=== PATIENT | male | born 1980 | race Caucasian/White ===

== ENCOUNTER 2017-08-25 06:22 | Inpatient (IN) | END 2017-08-30 17:05 | disposition home or self-care (01) | DRG 330 ==

== ENCOUNTER 2017-09-03 22:28 | Emergency (ER) | END 2017-09-04 00:46 | disposition home or self-care (01) ==

== ENCOUNTER 2018-06-08 07:30 | Inpatient (IN) | payer BC ==
[~2018-06-08] VITALS: Ht 167.6 cm; Wt 123.8 kg
[2018-06-08] VITALS (19 sets, daily range): BP systolic 109–189; BP diastolic 54–97; PULSE 87–124; RESP 15–23; Ht 167.6 cm; Wt 123.8 kg
[2018-06-08] MEDS: SOD CHLORIDE 0.9% 1,000 ML IV SCH ×3 (06:00→19:20)
[~2018-06-08 07:30] MED LIST: CEFAZOLIN 1 GM INJ ONE; CEFAZOLIN 2 GM/50 ML (PMX) 50 ML IVPB SCH; CEPH-443 PO; DESFLURANE 15 MIN ONE; HYDR-3601 PO; LIDOCAINE 2% (SDV) 5 ML INJ ONE; NO HOME MEDS; SUCCINYLCHOLINE CHLORIDE 100 MG/5 ML SYG IV ONE
--- NOTE | 2018-06-08 13:03 | PREAC ---
Date/Time of Note Date/Time of Note DATE: 06/08/18 TIME: 13:02 Anesthesia Eval and Record Evaluation Time Pre-Procedure Interview DATE: 06/08/18 TIME: 13:02 Age 38 Sex male NPO: 8 hrs Preoperative diagnosis RECURRENT DIVERTICULITIS Planned procedure OPEN LEFT HEMICOLECTOMY Past Medical History Past Medical History: Includes GI: Morbid obesity Surgery & Anesthesia Issues No known issue Meds Anticoagulation: No Beta Chito within 24 hr: No Reason Beta Chito not given: Pt. not on B-Chito Discontinued Reported Medications [No Home Meds] No Conflict Check 01/13/16 Discontinued Scripts Cephalexin* (Keflex*) 500 Mg Capsule, 500 MG PO TID for 7 Days, CAP Prov:DORETHA BRANDT PA-C 09/04/17 Hydrocodone Bit-Acetaminophen (Hydrocodone Bit-APAP) 5-325MG Tablet, 1 TAB PO Q4H PRN for PAIN LEVEL 1-5, #40 TAB Prov:HEATHER OWEN 08/30/17 Current Medications Cefazolin Sodium/ Dextrose 50 ml @ 100 mls/hr ONCE IVPB ; Start 06/08/18 at 06:00; Stop 06/08/18 at 14:00 Sodium Chloride 1,000 ml @ 75 mls/hr [id number] IV ; Start 06/08/18 at 06:00; Stop 06/08/18 at 23:00 Meds reviewed: Yes Allergies Coded Allergies: No Known Allergies (Verified Allergy, Unknown, 06/08/18) Allergies Reviewed: Yes Labs/Studies Labs Reviewed: Reviewed by anesthesiologist test: N/A Pre-procedure Exam Last vitals Vital Signs Date Temp Pulse Resp B/P (MAP) Pulse Ox O2 O2 Flow FiO2 Time Delivery Rate 06/08/18 97.9 87 16 128/84 96 Room Air 12:52 (99) Airway: Adequate mouth opening, Adequate thyromental dist Mallampati: Mallampati III Teeth: Normal Lung: Normal Heart: Normal ASA Physical Status ASA physical status: 3 Emergency: None Planned Anesthetic General/MAC: ETT Neuraxial: Spinal Planned Pain Management Sub-arachniod narcotics, Parenteral pain med Pre-operative Attestations Prior to commencing anesthesia and surgery, the patient was re-evaluated, there was verification of: *The patient's identity *The results of appropriate recent lab work and preoperative vital signs *The above evaluation not changing prior to induction *Anesthetic plan, risk benefits, alternative and complications discussed with patient/family; questions answered; patient/family understands, accepts and wishes to proceed. Vinay Knight M.D. Jun 08, 2018 13:03
[2018-06-08] MEDS ORDERED: ONDANSETRON 4 MG INJ ONE (13:14)
[2018-06-08] MEDS ORDERED: DEXAMETHASONE 4 MG/ML 5 ML INJ ONE (13:14)
[2018-06-08] MEDS ORDERED: FENTAnyl 50 MCG/ML VIAL ONE ×2 (13:14→15:56)
[2018-06-08] MEDS ORDERED: CEFAZOLIN 1 GM INJ ONE (13:14)
[2018-06-08] MEDS ORDERED: PROPOFOL 20 ML ONE (13:14)
[2018-06-08] MEDS ORDERED: GLYCOPYRROLATE 0.4 MG INJ ONE (13:14)
[2018-06-08] MEDS ORDERED: NEOSTIGMINE 3 MG/3 ML SYRINGE ONE (13:14)
[2018-06-08] MEDS ORDERED: ROCURONIUM 50 MG INJ ONE (13:14)
[2018-06-08] MEDS ORDERED: MIDAZOLAM 1 MG/ML 2 ML INJ ONE (13:14)
[2018-06-08] MEDS ORDERED: morphine SULFATE/PF (10 MG/10 ML) INJ ONE (13:20)
[2018-06-08] MEDS ORDERED: EPHEDrine SULFATE 50 MG/5 ML SYG IV PRN (13:30)
[2018-06-08] MEDS ORDERED: LABETALOL HCL 20MG INJ IV PRN (13:30)
[2018-06-08] MEDS ORDERED: MIDAZOLAM 1 MG/ML 2 ML INJ IV PRN (13:30)
[2018-06-08] MEDS ORDERED: ONDANSETRON 4 MG INJ IV PRN ×2 (13:30)
[2018-06-08] MEDS ORDERED: NALOXONE (0.4 MG/ML) INJ IV PRN ×2 (13:30→16:30)
[2018-06-08] MEDS ORDERED: DIPHENHYDRAMINE 50 MG INJ IV PRN ×2 (13:30)
[2018-06-08] MEDS ORDERED: IPRATROPIUM (NEB) 0.5 MG/2.5 ML AMP HHN PRN (13:30)
[2018-06-08] MEDS ORDERED: FENTAnyl 50 MCG/ML VIAL IV PRN ×3 (13:30)
[2018-06-08] MEDS ORDERED: HYDROmorphONE 1 MG/5 ML IV SYRINGE IV PRN ×3 (13:30)
[2018-06-08] MEDS ORDERED: ALBUTEROL 0.083% (NEB) 2.5 MG/3 ML AMP HHN PRN (13:30)
[2018-06-08] MEDS ORDERED: MEPERIDINE 25 MG INJ IV PRN (13:30)
[2018-06-08] MEDS ORDERED: OXYCODONE/ACETAMINOPHEN (5/325) TAB PO PRN ×2 (13:30)
[2018-06-08] MEDS ORDERED: KETOROLAC 30 MG INJ IV PRN (13:30)
[2018-06-08] MEDS ORDERED: TRIMETHOBENZAMIDE 100 MG/ML VIAL IM PRN ×2 (13:30)
[2018-06-08] MEDS ORDERED: hydrALAzine 20 MG INJ IV PRN (13:30)
[2018-06-08] MEDS ORDERED: NALBUPHINE HCL (10 MG/1 ML) INJ IV PRN (13:30)
[2018-06-08] MEDS ORDERED: HYDROmorphONE 0.5 MG/0.5 ML SYG IV PRN ×2 (13:30)
[2018-06-08] MEDS ORDERED: SUGAMMADEX SODIUM 200 MG/2 ML VIAL IV ONE (16:04)
--- NOTE | 2018-06-08 16:35 | PAC ---
Date/Time of Note Date/Time of Note DATE: 06/08/18 TIME: 16:35 Post-Anesthesia Notes Post-Anesthesia Note Last documented vital signs Vital Signs Date Temp Pulse Resp B/P (MAP) Pulse Ox O2 O2 Flow FiO2 Time Delivery Rate 06/08/18 98.5 16:34 06/08/18 87 16 128/84 96 Room Air 12:52 (99) Activity: WNL Respiratory function: WNL Cardiovascular function: WNL Mental status: Baseline Pain reasonably controlled: Yes Hydration appropriate: Yes Nausea/Vomiting absent: Yes Vinay Knight M.D. Jun 08, 2018 16:35
--- NOTE | 2018-06-08 16:43 | OPR ---
Date/Time of Note Date/Time of Note DATE: 06/08/18 TIME: 16:30 Operative Report Procedure Date: Jun 08, 2018 Preoperative Diagnosis enterocutaneous fistula Postoperative Diagnosis same Operation/Procedure Performed 1. takedown of enterovesical fistula 2. resection of colovesical fistula 3. intraoperative colonoscopy 4. partial colectomy and primary anastomosis 5. splenic flexure mobilization 6. open lysis of adhesions 7. open repair of incarcerated incisional hernia 8. omentopexy of omentum into the pelvis 9. two layer repair of bladder defect 5 cm Surgeon see signature line Ice [employer] Maker Feroz Lima Anesthesia Type: general Estimated Blood Loss: 150 - 200 ml's Transfusion none Specimen partial colon proximal and distal colon donuts colovesical fistula Grafts/Implants none Complications none Pt Condition Post Procedure: stable Indications This is a 38-year-old male with a very complicated history with 5-6 episodes of diverticulitis. He eventually got laparoscopic left hemicolectomy with primary anastomosis. Subsequently he developed a colovesical fistula. He had a work-up with a barium enema which showed no fistula. He subsequently had a cystoscopy with an area of concern that could be a fistula. Patient had symptoms of pain in the pelvis and is brought to the OR for surgical repair. Procedure Description Patient is here to the OR and prepped and draped in usual sterile fashion. Surgical timeout is performed. IV antibiotics given. Intraoperative colonoscopy was performed initially. This is taken all the way down to the proximal area of the splenic flexure to the cecum. The prep was poor. However the colonoscopy was focused in the area of the anastomosis and no obvious area of fistulization was apparent from the mucosa. Air was suctioned out and the scope was pulled and the patient was repositioned in lithotomy position for a laparotomy. Midline incision was made after the patient was prepped and draped for surgery. This incision was taken down from the supraumbilical down to the suprapubic area. At the periumbilical incision where prior incision was made for extraction of the specimen there was a incarcerated hernia. Lace of adhesio ns was performed and the hernia was manually reduced. The fascial incision was then extended superiorly and inferiorly. Bookwalter retractors were placed. Open lysis of adhesions was performed. Particular attention was paid to the pelvic area. There is an apparent area of the colon that was adhesed to the bladder. Part of the bladder was resected along with the colovesical fistula. The bladder was then repaired in a 2 layer fashion with running 3-0 chromic and the second layer of interrupted 3-0 chromic. Attention was then paid to the area of the Siva vesicle fistula. The fistula did not appear patent anymore and hence there was just an area of inflammation. This is consistent with the barium enema finding of no colovesical fistula. This area was then also resected and sent for specimen as the colovesical fistula. An evaluation of the colon was made and this defect appeared to large for a primary closure as this may compromise the circumference of the colon. The colon was then disconnected from the rectum to the left colon. The distal stump was then closed with a running 3-0 PDS. A partial colectomy was performed to have good fresh edges with good vascular supply. Splenic flexure mobilization was performed by first examining the transverse colon. Transverse colon was away from the omentum and although around the splenic flexure. The white line of Toldt was divided laterally. This allowed mobilization of the colon for a tension-free anastomosis. The anvil portion of the EEA 29 stapler was placed in the proximal colon with a pursestring 3-0 Prolene suture. EEA sizer placed into the rectum. EEA stapler was then placed and the anastomosis was made at the anterior portion of the distal stump away from the suture line. The EEA stapler was fired and held in position for approximately 1 minute. The EEA stapler was then appropriately retrieved and a proximal and distal donuts were identified that were intact. Leak test was then performed by irrigating the pelvis and closing the proximal portion of the colon proximal to the anastomosis. The rectum was then insufflated with bulb syringe and no evidence of any bulbs were shown. There is no evidence of any leaks. Irrigation was then suctioned out. Midline incision was then closed with a running #1 looped PDS from superior to inferior and inferior superior tied in the middle. The surgical wound was then irrigated with antibiotic irrigation. This was then closed in multiple layers with interrupted 3-0 Vicryl and skin malcolm. Dry dressings were applied. Shannan HUERTA Jun 08, 2018 16:43
[2018-06-08] MEDS ORDERED: AMPICILLIN/SULB 3 GM/NS (PMX) 100 ML IVPB SCH (17:00)
[2018-06-08] MEDS: HYDROmorphONE 0.2 MG/ML PCA IV SCH (17:06)
[2018-06-08] MEDS: metroNIDAZOLE 500 MG/NS (PMX) 100 ML IVPB SCH (20:25)
[2018-06-08] MEDS: AMPICILLIN/SULB 3 GM/NS (PMX) 100 ML IVPB SCH (21:58)
[2018-06-09] VITALS: BP 111/73; PULSE 112; RESP 18
--- NOTE | 2018-06-09 01:54 | HP ---
DATE OF ADMISSION: 06/08/2018 CHIEF COMPLAINT AND HISTORY OF PRESENT ILLNESS: The patient is a 38-year old gentleman well known to me from recent admission. The patient on 08/25/2017, underwent a laparoscopic left hemicolectomy with primary colorectal low pelvic anastomosis, lysis of adhesion. The patient prior to that, had multiple episodes of recurrent diverticulitis and multiple hospitalizations for that. The patient was discharged home on the 08/30/2017. The patient had been following up with Dr. Huerta as an outpatient and apparently developed colovesical fistula .The patient was brought in to hospital today and underwent takedown of enterovesical fistula, dissection of colovesical fistula, partial colectomy and primary anastomosis and open repair of incarcerated incisional hernia. The patient is being kept n.p.o. Denies any chest pain or shortness of breath. No history of fever or chills. No history of vomiting, postoperatively. No history of leg pain. No history of headache, dizziness, syncope. REVIEW OF SYSTEMS: Other than postoperative pain, rest of the systems was unremarkable. PAST MEDICAL HISTORY: As stated above. In addition, the patient is also status post laparoscopic cholecystectomy. ALLERGIES: NONE. SOCIAL HISTORY: No smoking or alcohol. FAMILY HISTORY: Noncontributory. PHYSICAL EXAMINATION: GENERAL: Revealed the patient to be awake, alert. VITAL SIGNS: Temperature 98.5, pulse 100, respirations 20, blood pressure 112/74, O2 saturation 90% on 3 liters cannula. HEENT: No eye discharge or redness. Conjunctivae normal. Oropharynx clear. NECK: Supple. No mass or thyromegaly. CHEST: Fairly clear. CARDIOVASCULAR: S1, S2, normal. No murmur. ABDOMEN: The patient is status post surgery as described above. EXTREMITIES: No edema. Pedal pulses palpable. SKIN: Without acute rash or ulcer. NEUROLOGIC: The patient is awake, alert, fairly oriented with no gross focal deficit. LABORATORY DATA: WBC 12.1, hemoglobin 13.8, platelet 263, chemistry sodium 137, potassium 4, BUN 10, creatinine 0.5, random glucose 229, earlier, it was 163, AST 68, ALT 66, alkaline phosphatase 81, bilirubin 0.9. IMPRESSION: 1. Recurrent diverticulitis status post laparoscopic left hemicolectomy with primary anastomosis complicated by colovesical fistula. The patient underwent takedown of enterovesical fistula, resection of colovesical fistula, partial colectomy, primary anastomosis and open repair of incarcerated incisional hernia and open lysis of adhesion. 2. ? new onset of DM PLAN: The patient will be admitted on medical floor. The patient will be kept n.p.o. and has been started on IV ampicillin as per protocol along with IV Flagyl. The patient will be given IV fluid. For pain control, the patient will be given IV Dilaudid, IV zofran for nausea. Will use scd for dvt prophylaxis. In view of elevated random blood sugar, we will obtain basic metabolic panel tomorrow as well as a hemoglobin A1c. Further recommendation will depend on patient's hospital course and recommendation from Dr. Huerta. Dictated By: BUD SWARTZ MD AB/NTS Conf#: [id number] DID#: [id number] CC: CHANCE HUERTA MD; LULA DELATORRE MD; RENETTA SMITH DO;*EndCC* MTDD
[2018-06-09] MEDS: metroNIDAZOLE 500 MG/NS (PMX) 100 ML IVPB SCH ×2 (02:41→11:07)
[2018-06-09] MEDS: SOD CHLORIDE 0.9% 1,000 ML IV SCH ×3 (02:41→16:53)
[2018-06-09] MEDS: AMPICILLIN/SULB 3 GM/NS (PMX) 100 ML IVPB SCH ×3 (04:11→15:27)
[2018-06-09 04:41] VITALS: BP 120/71; PULSE 88; RESP 17
[2018-06-09 07:24] VITALS: BP 108/65; PULSE 88; RESP 19
[2018-06-09] MEDS ORDERED: GLUCOSE GEL 15 GRAM TUBE BUCCAL PRN (10:00)
[2018-06-09] MEDS ORDERED: GLUCAGON 1 MG INJ IM PRN (10:00)
[2018-06-09] MEDS ORDERED: DEXTROSE 50% 50 ML SYRINGE IV PRN ×2 (10:00)
[2018-06-09] MEDS ORDERED: GLUCOSE GEL 15 GRAM TUBE PO PRN ×2 (10:00)
--- NOTE | 2018-06-09 11:12 | PN ---
Date/Time of Note Date/Time of Note DATE: 06/09/18 TIME: 11:10 Assessment/Plan VTE Prophylaxis Risk score (from [facility] [place] risk: 5 SCD applied (from Ns): Yes Lines/Catheters IV Catheter Type (from [facility]): Peripheral IV Urinary Cath still in place: Yes Reason Cath still needed: urinary retention Assessment/Plan Assessment/Plan -Recurrent diverticulitis -status post laparoscopic left hemicolectomy with primary anastomosis complicated by colovesical fistula -Sp takedown of enterovesical fistula, resection of colovesical fistula, partial colectomy, primary anastomosis and open repair of incarcerated incisional hernia and open lysis of adhesion. Rafael Shannon Result Diagram: 06/09/1842706/09/18427 Results 24hrs Laboratory Tests Test 06/08/18 13:00 06/08/18 18:56 06/09/18 04:28 White Blood Count 9.6 # 12.1 #H 16.0 #H Red Blood Count 5.11 4.66 L 4.35 L Hemoglobin 15.2 13.8 L 12.9 L Hematocrit 44.6 40.9 L 37.8 L Mean Corpuscular Volume 87.3 87.8 86.9 Mean Corpuscular Hemoglobin 29.7 29.6 29.7 Mean Corpuscular Hemoglobin Concent 34.1 33.7 34.1 Red Cell Distribution Width 12.1 12.2 11.9 Platelet Count 296 # 263 252 Mean Platelet Volume 10.4 10.6 H 10.8 H Immature Granulocytes % 0.600 H 0.500 H 0.800 H Neutrophils % 48.5 86.3 H 81.3 H Lymphocytes % 42.3 9.2 L 10.8 L Monocytes % 5.7 3.6 6.8 Eosinophils % 2.2 0.1 0.0 Basophils % 0.7 0.3 0.3 Nucleated Red Blood Cells % 0.0 0.0 0.0 Immature Granulocytes # 0.060 H 0.060 H 0.130 H Neutrophils # 4.7 10.5 H 13.0 H Lymphocytes # 4.1 H 1.1 1.7 Monocytes # 0.6 0.4 1.1 H Eosinophils # 0.2 0.0 0.0 Basophils # 0.1 0.0 0.0 Nucleated Red Blood Cells # 0.0 0.0 0.0 Prothrombin Time 13.0 Prothrombin Time Ratio 1.0 INR International Normalized Ratio 0.97 Activated Partial Thromboplast Time 31.0 Sodium Level 142 137 135 Potassium Level 3.9 4.0 4.2 Chloride Level 101 99 98 Carbon Dioxide Level 26 24 26 Anion Gap 15 H 14 H 11 Blood Urea Nitrogen 12 10 7 Creatinine 0.66 0.53 L 0.50 L Est Glomerular Filtrat Rate mL/min > 60 > 60 > 60 Glucose Level 163 229 H 217 Calcium Level 9.9 8.9 9.0 Total Bilirubin 1.3 0.9 1.4 H Direct Bilirubin 0.00 0.00 0.00 Indirect Bilirubin 1.3 H 0.9 1.4 H Aspartate Amino Transf (AST/SGOT) 33 68 #H 37 Alanine Aminotransferase (ALT/SGPT) 47 66 57 Alkaline Phosphatase 98 81 74 Total Protein 8.5 H 7.2 # 7.2 Albumin 4.6 4.1 4.1 Globulin 3.90 H 3.10 3.10 Albumin/Globulin Ratio 1.17 1.32 1.32 Hemoglobin A1c 8.2 H Subjective 24 Hr Interval Summary Constitutional: requiring IVF Exam/Review of Systems Exam Vitals Vital Signs Date Temp Pulse Resp B/P (MAP) Pulse Ox O2 O2 Flow FiO2 Time Delivery Rate 06/09/18 98.5 88 19 108/65 92 07:24 (79) 06/09/18 Nasal 2.0 04:41 Cannula Intake and Output 06/08/18 06/08/18 06/09/18 1515:00 23:00 07:00 IntakeIntake Total 6750 ml 1180 ml OutputOutput Total 800 ml 2000 ml BalanceBalance 5950 ml -820 ml Results Results 24hrs Laboratory Tests Test 06/08/18 13:00 06/08/18 18:56 06/09/18 04:28 White Blood Count 9.6 # 12.1 #H 16.0 #H Red Blood Count 5.11 4.66 L 4.35 L Hemoglobin 15.2 13.8 L 12.9 L Hematocrit 44.6 40.9 L 37.8 L Mean Corpuscular Volume 87.3 87.8 86.9 Mean Corpuscular Hemoglobin 29.7 29.6 29.7 Mean Corpuscular Hemoglobin Concent 34.1 33.7 34.1 Red Cell Distribution Width 12.1 12.2 11.9 Platelet Count 296 # 263 252 Mean Platelet Volume 10.4 10.6 H 10.8 H Immature Granulocytes % 0.600 H 0.500 H 0.800 H Neutrophils % 48.5 86.3 H 81.3 H Lymphocytes % 42.3 9.2 L 10.8 L Monocytes % 5.7 3.6 6.8 Eosinophils % 2.2 0.1 0.0 Basophils % 0.7 0.3 0.3 Nucleated Red Blood Cells % 0.0 0.0 0.0 Immature Granulocytes # 0.060 H 0.060 H 0.130 H Neutrophils # 4.7 10.5 H 13.0 H Lymphocytes # 4.1 H 1.1 1.7 Monocytes # 0.6 0.4 1.1 H Eosinophils # 0.2 0.0 0.0 Basophils # 0.1 0.0 0.0 Nucleated Red Blood Cells # 0.0 0.0 0.0 Prothrombin Time 13.0 Prothrombin Time Ratio 1.0 INR International Normalized Ratio 0.97 Activated Partial Thromboplast Time 31.0 Sodium Level 142 137 135 Potassium Level 3.9 4.0 4.2 Chloride Level 101 99 98 Carbon Dioxide Level 26 24 26 Anion Gap 15 H 14 H 11 Blood Urea Nitrogen 12 10 7 Creatinine 0.66 0.53 L 0.50 L Est Glomerular Filtrat Rate mL/min > 60 > 60 > 60 Glucose Level 163 229 H 217 Calcium Level 9.9 8.9 9.0 Total Bilirubin 1.3 0.9 1.4 H Direct Bilirubin 0.00 0.00 0.00 Indirect Bilirubin 1.3 H 0.9 1.4 H Aspartate Amino Transf (AST/SGOT) 33 68 #H 37 Alanine Aminotransferase (ALT/SGPT) 47 66 57 Alkaline Phosphatase 98 81 74 Total Protein 8.5 H 7.2 # 7.2 Albumin 4.6 4.1 4.1 Globulin 3.90 H 3.10 3.10 Albumin/Globulin Ratio 1.17 1.32 1.32 Hemoglobin A1c 8.2 H Medications Medication Current Medications Hydromorphone HCl (Dilaudid) 0.2 mg Q2H PRN IV .PAIN 1-5; Start 06/08/18 at 13:30 Hydromorphone HCl (Dilaudid) 0.4 mg Q2H PRN IV .PAIN 6-10; Start 06/08/18 at 13:30 Ketorolac Tromethamine (Toradol) 30 mg Q6H PRN IV .PAIN 6-10; Start 06/08/18 at 13:30; Stop 06/11/18 at 13:29 Diphenhydramine HCl (Benadryl) 25 mg Q4H PRN IV .PRURITUS; Start 06/08/18 at 13:30 Nalbuphine HCl (Nubain) 10 mg Q4H PRN IV .PRURITUS; Start 06/08/18 at 13:30 Ondansetron HCl (Zofran Inj) 4 mg Q6H PRN IV .NAUSEA/VOMITING; Start 06/08/18 at 13:30 Trimethobenzamide HCl (Tigan) 200 mg Q6H PRN IM .NAUSEA/VOMITING; Start 06/08/18 at 13:30 Naloxone HCl (Narcan) 0.2 mg Q2M PRN IV .RESP RATE; Start 06/08/18 at 13:30 Miscellaneous Information (* Miscellaneous Pharmacy Order) DURAMORPH: 0.2 MG SPI... GIVEN NEURAXIAL XX ; Start 06/08/18 at 13:30 Metronidazole 100 ml @ 100 mls/hr Q8H IVPB Last administered on 06/09/18at 11:07; Admin Dose 100 MLS/HR; Start 06/08/18 at 18:00; Stop 06/09/18 at 17:59 Sodium Chloride 1,000 ml @ 100 mls/hr Q10H IV Last administered on 06/09/18at 02:41; Admin Dose 100 MLS/HR; Start 06/08/18 at 16:27 Naloxone HCl (Narcan) 0.2 mg Q2M PRN IV RR 8 BREATHS/MIN OR LESS; Start 05/22 10/09 at 16:30 Hydromorphone HCl (Dilaudid [employer]NAGEMENT SPECIALIST) Q4PCA IV Last administered on 06/08/18at 17:06; Admin Dose 6 MG; Start 06/08/18 at 16:30 Ampicillin Sodium/ Sulbactam Sodium 100 ml @ 200 mls/hr Q6H IVPB Last administered on 06/09/18at 09:48; Admin Dose 200 MLS/HR; Start 06/08/18 at 21:00; Stop 06/09/18 at 15:29 Insulin Aspart (Novolog Insulin Pen) NOVOLOG *MODERATE* ALGORITHM WITH MEALS BEDTIME SC ; Start 06/09/18 at 11:40 Miscellaneous Information 1 ea NOTE XX ; Start 06/09/18 at 10:00 Glucose (Glutose) 15 gm Q15M PRN PO DECREASED GLUCOSE; Start 06/09/18 at 10:00 Glucose (Glutose) 22.5 gm Q15M PRN PO DECREASED GLUCOSE; Start 06/09/18 at 10:00 Dextrose (D50w Syringe) 25 ml Q15M PRN IV DECREASED GLUCOSE; Start 06/09/18 at 10:00 Dextrose (D50w Syringe) 50 ml Q15M PRN IV DECREASED GLUCOSE; Start 06/09/18 at 10:00 Glucagon (Glucagen) 1 mg Q15M PRN IM DECREASED GLUCOSE; Start 06/09/18 at 10:00 Glucose (Glutose) 15 gm Q15M PRN BUCCAL DECREASED GLUCOSE; Start 06/09/18 at 10:00 Diagnostic Test (Pha) (Accu-Chek) 1 ea 02 XX ; Start 06/10/18 at 02:00 ZAYRA AVILA Jun 09, 2018 11:12
[2018-06-09] MEDS ORDERED: INSULIN ASPART [NOVOLOG] 3 ML PEN SC SCH ×2 (11:40→18:00)
--- NOTE | 2018-06-09 12:34 | PN ---
Date/Time of Note Date/Time of Note DATE: 06/09/18 TIME: 12:33 Assessment/Plan VTE Prophylaxis Risk score (from Ns)>0 risk: 5 SCD applied (from Ns): Yes Pharmacological prophylaxis: other Lines/Catheters IV Catheter Type (from [facility]): Peripheral IV Urinary Cath still in place: Yes Reason Cath still needed: other (indicate) (bladder surgery) Assessment/Plan Assessment/Plan s/p open colovesical fistula excision and repair of bladder and primary anastomosis of colon after partial colectomy doing well continue with pain control and monitor closely Result Diagram: 06/09/18 0428 06/09/188 Results 24hrs Laboratory Tests Test 06/08/18 13:00 06/08/18 18:56 06/09/18 04:28 White Blood Count 9.6 # 12.1 #H 16.0 #H Red Blood Count 5.11 4.66 L 4.35 L Hemoglobin 15.2 13.8 L 12.9 L Hematocrit 44.6 40.9 L 37.8 L Mean Corpuscular Volume 87.3 87.8 86.9 Mean Corpuscular Hemoglobin 29.7 29.6 29.7 Mean Corpuscular Hemoglobin Concent 34.1 33.7 34.1 Red Cell Distribution Width 12.1 12.2 11.9 Platelet Count 296 # 263 252 Mean Platelet Volume 10.4 10.6 H 10.8 H Immature Granulocytes % 0.600 H 0.500 H 0.800 H Neutrophils % 48.5 86.3 H 81.3 H Lymphocytes % 42.3 9.2 L 10.8 L Monocytes % 5.7 3.6 6.8 Eosinophils % 2.2 0.1 0.0 Basophils % 0.7 0.3 0.3 Nucleated Red Blood Cells % 0.0 0.0 0.0 Immature Granulocytes # 0.060 H 0.060 H 0.130 H Neutrophils # 4.7 10.5 H 13.0 H Lymphocytes # 4.1 H 1.1 1.7 Monocytes # 0.6 0.4 1.1 H Eosinophils # 0.2 0.0 0.0 Basophils # 0.1 0.0 0.0 Nucleated Red Blood Cells # 0.0 0.0 0.0 Prothrombin Time 13.0 Prothrombin Time Ratio 1.0 INR International Normalized Ratio 0.97 Activated Partial Thromboplast Time 31.0 Sodium Level 142 137 135 Potassium Level 3.9 4.0 4.2 Chloride Level 101 99 98 Carbon Dioxide Level 26 24 26 Anion Gap 15 H 14 H 11 Blood Urea Nitrogen 12 10 7 Creatinine 0.66 0.53 L 0.50 L Est Glomerular Filtrat Rate mL/min > 60 > 60 > 60 Glucose Level 163 229 H 217 Calcium Level 9.9 8.9 9.0 Total Bilirubin 1.3 0.9 1.4 H Direct Bilirubin 0.00 0.00 0.00 Indirect Bilirubin 1.3 H 0.9 1.4 H Aspartate Amino Transf (AST/SGOT) 33 68 #H 37 Alanine Aminotransferase (ALT/SGPT) 47 66 57 Alkaline Phosphatase 98 81 74 Total Protein 8.5 H 7.2 # 7.2 Albumin 4.6 4.1 4.1 Globulin 3.90 H 3.10 3.10 Albumin/Globulin Ratio 1.17 1.32 1.32 Hemoglobin A1c 8.2 H Subjective 24 Hr Interval Summary Free Text/Dictation doing well pain under control tolerating ice chips, no nausea, no vomiting Exam/Review of Systems Exam Vitals Vital Signs Date Temp Pulse Resp B/P (MAP) Pulse Ox O2 O2 Flow FiO2 Time Delivery Rate 06/09/18 Nasal 3.0 08:00 Cannula 06/09/18 16 08:00 06/09/18 98.5 88 108/65 92 07:24 (79) Intake and Output 06/08/18 06/08/18 06/09/18 1515:00 23:00 07:00 IntakeIntake Total 6750 ml 1180 ml OutputOutput Total 800 ml 2000 ml BalanceBalance 5950 ml -820 ml Exam c/d/i Results Results 24hrs Laboratory Tests Test 06/08/18 13:00 06/08/18 18:56 06/09/18 04:28 White Blood Count 9.6 # 12.1 #H 16.0 #H Red Blood Count 5.11 4.66 L 4.35 L Hemoglobin 15.2 13.8 L 12.9 L Hematocrit 44.6 40.9 L 37.8 L Mean Corpuscular Volume 87.3 87.8 86.9 Mean Corpuscular Hemoglobin 29.7 29.6 29.7 Mean Corpuscular Hemoglobin Concent 34.1 33.7 34.1 Red Cell Distribution Width 12.1 12.2 11.9 Platelet Count 296 # 263 252 Mean Platelet Volume 10.4 10.6 H 10.8 H Immature Granulocytes % 0.600 H 0.500 H 0.800 H Neutrophils % 48.5 86.3 H 81.3 H Lymphocytes % 42.3 9.2 L 10.8 L Monocytes % 5.7 3.6 6.8 Eosinophils % 2.2 0.1 0.0 Basophils % 0.7 0.3 0.3 Nucleated Red Blood Cells % 0.0 0.0 0.0 Immature Granulocytes # 0.060 H 0.060 H 0.130 H Neutrophils # 4.7 10.5 H 13.0 H Lymphocytes # 4.1 H 1.1 1.7 Monocytes # 0.6 0.4 1.1 H Eosinophils # 0.2 0.0 0.0 Basophils # 0.1 0.0 0.0 Nucleated Red Blood Cells # 0.0 0.0 0.0 Prothrombin Time 13.0 Prothrombin Time Ratio 1.0 INR International Normalized Ratio 0.97 Activated Partial Thromboplast Time 31.0 Sodium Level 142 137 135 Potassium Level 3.9 4.0 4.2 Chloride Level 101 99 98 Carbon Dioxide Level 26 24 26 Anion Gap 15 H 14 H 11 Blood Urea Nitrogen 12 10 7 Creatinine 0.66 0.53 L 0.50 L Est Glomerular Filtrat Rate mL/min > 60 > 60 > 60 Glucose Level 163 229 H 217 Calcium Level 9.9 8.9 9.0 Total Bilirubin 1.3 0.9 1.4 H Direct Bilirubin 0.00 0.00 0.00 Indirect Bilirubin 1.3 H 0.9 1.4 H Aspartate Amino Transf (AST/SGOT) 33 68 #H 37 Alanine Aminotransferase (ALT/SGPT) 47 66 57 Alkaline Phosphatase 98 81 74 Total Protein 8.5 H 7.2 # 7.2 Albumin 4.6 4.1 4.1 Globulin 3.90 H 3.10 3.10 Albumin/Globulin Ratio 1.17 1.32 1.32 Hemoglobin A1c 8.2 H Medications Medication Current Medications Hydromorphone HCl (Dilaudid) 0.2 mg Q2H PRN IV .PAIN 1-5; Start 06/08/18 at 13:30 Hydromorphone HCl (Dilaudid) 0.4 mg Q2H PRN IV .PAIN 6-10; Start 06/08/18 at 13:30 Ketorolac Tromethamine (Toradol) 30 mg Q6H PRN IV .PAIN 6-10; Start 06/08/18 at 13:30; Stop 06/11/18 at 13:29 Diphenhydramine HCl (Benadryl) 25 mg Q4H PRN IV .PRURITUS; Start 06/08/18 at 13:30 Nalbuphine HCl (Nubain) 10 mg Q4H PRN IV .PRURITUS; Start 06/08/18 at 13:30 Ondansetron HCl (Zofran Inj) 4 mg Q6H PRN IV .NAUSEA/VOMITING; Start 06/08/18 at 13:30 Trimethobenzamide HCl (Tigan) 200 mg Q6H PRN IM .NAUSEA/VOMITING; Start 06/08/18 at 13:30 Naloxone HCl (Narcan) 0.2 mg Q2M PRN IV .RESP RATE; Start 06/08/18 at 13:30 Miscellaneous Information (* Miscellaneous Pharmacy Order) DURAMORPH: 0.2 MG SPI... GIVEN NEURAXIAL XX ; Start 06/08/18 at 13:30 Metronidazole 100 ml @ 100 mls/hr Q8H IVPB Last administered on 06/09/18at 11:07; Admin Dose 100 MLS/HR; Start 06/08/18 at 18:00; Stop 06/09/18 at 17:59 Sodium Chloride 1,000 ml @ 100 mls/hr Q10H IV Last administered on 06/09/18at 02:41; Admin Dose 100 MLS/HR; Start 06/08/18 at 16:27 Naloxone HCl (Narcan) 0.2 mg Q2M PRN IV RR 8 BREATHS/MIN OR LESS; Start 06/08/18 at 16:30 Hydromorphone HCl (Dilaudid ESTATE TAX EXAMINER) Q4PCA IV Last administered on 06/08/18at 17:06; Admin Dose 6 MG; Start 06/08/18 at 16:30 Ampicillin Sodium/ Sulbactam Sodium 100 ml @ 200 mls/hr Q6H IVPB Last administered on 06/09/18at 09:48; Admin Dose 200 MLS/HR; Start 06/08/18 at 21:00; Stop 06/09/18 at 15:29 Insulin Aspart (Novolog Insulin Pen) NOVOLOG *MODERATE* ALGORITHM WITH MEALS BEDTIME SC ; Start 06/09/18 at 11:40 Miscellaneous Information 1 ea NOTE XX ; Start 06/09/18 at 10:00 Glucose (Glutose) 15 gm Q15M PRN PO DECREASED GLUCOSE; Start 06/09/18 at 10:00 Glucose (Glutose) 22.5 gm Q15M PRN PO DECREASED GLUCOSE; Start 06/09/18 at 10:00 Dextrose (D50w Syringe) 25 ml Q15M PRN IV DECREASED GLUCOSE; Start 06/09/18 at 10:00 Dextrose (D50w Syringe) 50 ml Q15M PRN IV DECREASED GLUCOSE; Start 06/09/18 at 10:00 Glucagon (Glucagen) 1 mg Q15M PRN IM DECREASED GLUCOSE; Start 06/09/18 at 10:00 Glucose (Glutose) 15 gm Q15M PRN BUCCAL DECREASED GLUCOSE; Start 06/09/18 at 10:00 Diagnostic Test (Pha) (Accu-Chek) 1 ea 02 XX ; Start 06/10/18 at 02:00 Shannan HUERTA Jun 09, 2018 12:34
[2018-06-09 14:41] VITALS: BP 113/57; PULSE 84; RESP 18
[2018-06-09] MEDS: HYDROmorphONE 0.2 MG/ML PCA IV SCH (18:19)
[2018-06-09] MEDS: Insulin NOVOLOG SS MODERATE Algorithm(NPO/TPN/ENTERAL FEEDS) SC SCH (18:20)
[2018-06-09 19:10] VITALS: BP 115/68; PULSE 92; RESP 20
[2018-06-10 01:27] VITALS: BP 118/64; PULSE 99; RESP 18
[2018-06-10] MEDS: ACCUCHECK AT 2AM (Patients on SS coverage) XX SCH (02:00)
[2018-06-10] MEDS: SOD CHLORIDE 0.9% 1,000 ML IV SCH ×2 (03:24→13:38)
[2018-06-10] MEDS: Insulin NOVOLOG SS MODERATE Algorithm(NPO/TPN/ENTERAL FEEDS) SC SCH ×4 (06:28→18:00)
[2018-06-10 08:23] VITALS: BP 116/75; PULSE 106; RESP 18
--- NOTE | 2018-06-10 12:45 | PN ---
Date/Time of Note Date/Time of Note DATE: 06/10/18 TIME: 12:44 Assessment/Plan VTE Prophylaxis Risk score (from Nsg)>0 risk: 5 SCD applied (from Nsg): Yes Pharmacological prophylaxis: LMWH Lines/Catheters IV Catheter Type (from Nrsg): Peripheral IV Urinary Cath still in place: Yes Reason Cath still needed: skin wounds contaminated by urine Assessment/Plan Hospital Course -Recurrent diverticulitis -status post laparoscopic left hemicolectomy with primary anastomosis complicated by colovesical fistula -Sp takedown of enterovesical fistula, resection of colovesical fistula, partial colectomy, primary anastomosis and open repair of incarcerated incisional hernia and open lysis of adhesion. Result Diagram: 06/10/18 0434 06/10/18 0434 Results 24hrs Laboratory Tests Test 06/09/18 13:07 06/09/18 18:17 06/10/18 01:03 06/10/18 04:34 Bedside Glucose 187 188 157 White Blood Count 12.2 #H Red Blood Count 4.41 L Hemoglobin 12.8 L Hematocrit 39.1 L Mean Corpuscular 88.7 Volume Mean Corpuscular 29.0 Hemoglobin Mean Corpuscular 32.7 Hemoglobin Concent Red Cell 12.0 Distribution Width Platelet Count 233 Mean Platelet Volume 10.5 H Immature 0.800 H Granulocytes % Neutrophils % 74.6 Lymphocytes % 16.3 Monocytes % 5.9 Eosinophils % 2.0 Basophils % 0.4 Nucleated Red Blood 0.0 Cells % Immature 0.100 H Granulocytes # Neutrophils # 9.1 H Lymphocytes # 2.0 Monocytes # 0.7 Eosinophils # 0.2 Basophils # 0.1 Nucleated Red Blood 0.0 Cells # Sodium Level 138 Potassium Level 3.8 Chloride Level 97 Carbon Dioxide Level 30 Anion Gap 11 Blood Urea Nitrogen 8 Creatinine 0.61 Est Glomerular > 60 Filtrat Rate mL/min Glucose Level 172 Calcium Level 8.8 Test 06/10/18 06:24 06/10/18 11:52 Bedside Glucose 167 139 Subjective 24 Hr Interval Summary Free Text/Dictation Patient doing well, still has some pain Exam/Review of Systems Exam Vitals Vital Signs Date Temp Pulse Resp B/P (MAP) Pulse Ox O2 O2 Flow FiO2 Time Delivery Rate 06/10/18 16 09:00 06/10/18 98.9 106 116/75 92 Nasal 08:23 (89) Cannula 06/09/18 3.0 08:00 Intake and Output 06/09/18 06/09/18 06/10/18 1515:00 23:00 07:00 IntakeIntake Total 200 ml 1180 ml 1290 ml OutputOutput Total 2200 ml 1400 ml BalanceBalance -2000 ml 1180 ml -110 ml Constitutional: well developed Head: normocephalic, atraumatic Neck: supple Respiratory: clear to auscultation Cardiovascular: regular rate and rhythm Gastrointestinal: soft, non-tender Extremities: normal pulses Results Results 24hrs Laboratory Tests Test 06/09/18 13:07 06/09/18 18:17 06/10/18 01:03 06/10/18 04:34 Bedside Glucose 187 188 157 White Blood Count 12.2 #H Red Blood Count 4.41 L Hemoglobin 12.8 L Hematocrit 39.1 L Mean Corpuscular 88.7 Volume Mean Corpuscular 29.0 Hemoglobin Mean Corpuscular 32.7 Hemoglobin Concent Red Cell 12.0 Distribution Width Platelet Count 233 Mean Platelet Volume 10.5 H Immature 0.800 H Granulocytes % Neutrophils % 74.6 Lymphocytes % 16.3 Monocytes % 5.9 Eosinophils % 2.0 Basophils % 0.4 Nucleated Red Blood 0.0 Cells % Immature 0.100 H Granulocytes # Neutrophils # 9.1 H Lymphocytes # 2.0 Monocytes # 0.7 Eosinophils # 0.2 Basophils # 0.1 Nucleated Red Blood 0.0 Cells # Sodium Level 138 Potassium Level 3.8 Chloride Level 97 Carbon Dioxide Level 30 Anion Gap 11 Blood Urea Nitrogen 8 Creatinine 0.61 Est Glomerular > 60 Filtrat Rate mL/min Glucose Level 172 Calcium Level 8.8 Test 06/10/18 06:24 06/10/18 11:52 Bedside Glucose 167 139 Medications Medication Current Medications Hydromorphone HCl (Dilaudid) 0.2 mg Q2H PRN IV .PAIN 1-5; Start 06/08/18 at 13:30 Hydromorphone HCl (Dilaudid) 0.4 mg Q2H PRN IV .PAIN 6-10; Start 06/08/18 at 13:30 Ketorolac Tromethamine (Toradol) 30 mg Q6H PRN IV .PAIN 6-10; Start 06/08/18 at 13:30; Stop 06/11/18 at 13:29 Diphenhydramine HCl (Benadryl) 25 mg Q4H PRN IV .PRURITUS; Start 06/08/18 at 13:30 Nalbuphine HCl (Nubain) 10 mg Q4H PRN IV .PRURITUS; Start 06/08/18 at 13:30 Ondansetron HCl (Zofran Inj) 4 mg Q6H PRN IV .NAUSEA/VOMITING; Start 06/08/18 at 13:30 Trimethobenzamide HCl (Tigan) 200 mg Q6H PRN IM .NAUSEA/VOMITING; Start 06/08/18 at 13:30 Naloxone HCl (Narcan) 0.2 mg Q2M PRN IV .RESP RATE; Start 06/08/18 at 13:30 Miscellaneous Information (* Miscellaneous Pharmacy Order) DURAMORPH: 0.2 MG SPI... GIVEN NEURAXIAL XX ; Start 06/08/18 at 13:30 Sodium Chloride 1,000 ml @ 100 mls/hr Q10H IV Last administered on 06/10/18at 03:24; Admin Dose 100 MLS/HR; Start 06/08/18 at 16:27 Naloxone HCl (Narcan) 0.2 mg Q2M PRN IV RR 8 BREATHS/MIN OR LESS; Start 06/08/18 at 16:30 Hydromorphone HCl (Dilaudid PUG MILL OPERATOR HELPER) Q4PCA IV Last administered on 06/09/18at 18:19; Admin Dose 6 MG; Start 06/08/18 at 16:30 Miscellaneous Information 1 ea NOTE XX ; Start 06/09/18 at 10:00 Glucose (Glutose) 15 gm Q15M PRN PO DECREASED GLUCOSE; Start 06/09/18 at 10:00 Glucose (Glutose) 22.5 gm Q15M PRN PO DECREASED GLUCOSE; Start 06/09/18 at 10:00 Dextrose (D50w Syringe) 25 ml Q15M PRN IV DECREASED GLUCOSE; Start 06/09/18 at 10:00 Dextrose (D50w Syringe) 50 ml Q15M PRN IV DECREASED GLUCOSE; Start 06/09/18 at 10:00 Glucagon (Glucagen) 1 mg Q15M PRN IM DECREASED GLUCOSE; Start 06/09/18 at 10:00 Glucose (Glutose) 15 gm Q15M PRN BUCCAL DECREASED GLUCOSE; Start 06/09/18 at 10:00 Diagnostic Test (Pha) (Accu-Chek) 1 ea 02 XX ; Start 06/10/18 at 02:00 Insulin Aspart (Novolog Insulin Pen) (Adult SC Insulin - Moder... Q6 SC Last administered on 06/10/18at 06:28; Admin Dose 2 UNIT; Start 06/09/18 at 18:00 VALENCIA AZAR Jun 10, 2018 12:45
[2018-06-10 15:26] VITALS: BP 126/79; PULSE 98; RESP 18
[2018-06-10] MEDS: HYDROmorphONE 0.2 MG/ML PCA IV SCH (16:42)
[2018-06-10] MEDS: D5-NS + KCL 20 MEQ 1,000 ML IV SCH (19:33)
[2018-06-10 19:50] VITALS: BP 130/79; PULSE 18; RESP 18
--- NOTE | 2018-06-10 20:49 | PN ---
DATE: 06/10/2018 Postop day #2 status post laparotomy, segmental colon resection, takedown of the colovesical fistula and repair of the bladder. SUBJECTIVE: He does not have any specific complaint. OBJECTIVE: GENERAL: Awake, alert, oriented x3. VITAL SIGNS: Temperature maximum 98.8, heart rate 98, respirations 18, blood pressure 126/79. LABORATORY DATA: Sodium, potassium, BUN, creatinine normal. POC glucose 139. Hematology: WBC down to 12,200 with 74% segmented, hemoglobin 12.8, hematocrit 39.1. Urine output 3600 mL in past 24 belinda rs. HEART: Regular. LUNGS: Clear. Decreased breathing sound at the bases. ABDOMEN: Protruded with fat and probably gas in the epigastric area, tympanic in the area. Bowel so unds hypoactive. No rigidity. Knight catheter is in place. ASSESSMENT: This is a 38-year-old who had taken down of colovesical fistula 2 days ago. The patient is stable so far. Leukocyte count is coming down. Hemoglobin and hematocrit is stable. The patien t is receiving IV, n.p.o. except ice chips. Knight catheter is in place. The patient has been out of bed and walked around. PLAN: Continue current care. Encourage incentive spirometry and encourage out of bed and walk aroun d. We will add potassium to the IV fluid. Dictated By: TITA SALAZAR MD PS/NTS Conf#: [id number] DID#: [id number] CC: CHANCE HUERTA MD; BUD SWARTZ MD;*EndCC*
[2018-06-11] MEDS: Insulin NOVOLOG SS MODERATE Algorithm(NPO/TPN/ENTERAL FEEDS) SC SCH ×4 (00:32→17:50)
[2018-06-11] MEDS: ACCUCHECK AT 2AM (Patients on SS coverage) XX SCH (01:39)
[2018-06-11 01:51] VITALS: BP 128/77; PULSE 99; RESP 18
[2018-06-11 02:00] VITALS: BP 128/77; PULSE 99; RESP 18
[2018-06-11] MEDS: D5-NS + KCL 20 MEQ 1,000 ML IV SCH ×2 (05:13→16:47)
[2018-06-11 07:00] VITALS: BP 129/77; PULSE 99; RESP 18
[2018-06-11] MEDS: HYDROmorphONE 0.2 MG/ML PCA IV SCH ×2 (10:46→23:57)
--- NOTE | 2018-06-11 12:48 | PN ---
Date/Time of Note Date/Time of Note DATE: 06/11/18 TIME: 12:47 Assessment/Plan VTE Prophylaxis Risk score (from Ns)>0 risk: 5 SCD applied (from Nsg): Yes Pharmacological prophylaxis: LMWH Lines/Catheters IV Catheter Type (from Nrsg): Peripheral IV Urinary Cath still in place: Yes Reason Cath still needed: skin wounds contaminated by urine Assessment/Plan Hospital Course -Recurrent diverticulitis -status post laparoscopic left hemicolectomy with primary anastomosis complicated by colovesical fistula -Sp takedown of enterovesical fistula, resection of colovesical fistula, partial colectomy, primary anastomosis and open repair of incarcerated incisional hernia and open lysis of adhesion. Result Diagram: 06/11/18 1148 06/11/18 1148 Results 24hrs Laboratory Tests Test 06/10/18 18:02 06/11/18 00:25 06/11/18 06:24 06/11/18 11:48 Bedside Glucose 120 148 158 White Blood Count 10.2 Red Blood Count 4.68 L Hemoglobin 13.9 L Hematocrit 40.9 L Mean Corpuscular 87.4 Volume Mean Corpuscular 29.7 Hemoglobin Mean Corpuscular 34.0 Hemoglobin Concent Red Cell 12.0 Distribution Width Platelet Count 277 Mean Platelet Volume 10.3 Immature 1.100 H Granulocytes % Neutrophils % 64.7 Lymphocytes % 23.6 Monocytes % 6.5 Eosinophils % 3.5 Basophils % 0.6 Nucleated Red Blood 0.0 Cells % Immature 0.110 H Granulocytes # Neutrophils # 6.6 Lymphocytes # 2.4 Monocytes # 0.7 Eosinophils # 0.4 Basophils # 0.1 Nucleated Red Blood 0.0 Cells # Sodium Level 137 Potassium Level 3.9 Chloride Level 97 Carbon Dioxide Level 30 Anion Gap 10 Blood Urea Nitrogen 7 Creatinine 0.68 Est Glomerular > 60 Filtrat Rate mL/min Glucose Level 173 Calcium Level 9.2 Test 06/11/18 12:25 Bedside Glucose 167 Subjective 24 Hr Interval Summary Free Text/Dictation Patient still have some abdominal pain Exam/Review of Systems Exam Vitals Vital Signs Date Temp Pulse Resp B/P (MAP) Pulse Ox O2 O2 Flow FiO2 Time Delivery Rate 06/11/18 16 09:00 06/11/18 97.5 99 129/77 91 Room Air 07:00 (94) 06/09/18 3.0 08:00 Intake and Output 06/10/18 06/10/18 06/11/18 1515:00 23:00 07:00 IntakeIntake Total 850 ml 655 ml 1200 ml OutputOutput Total 600 ml 450 ml 2300 ml BalanceBalance 250 ml 205 ml -1100 ml Constitutional: well developed Head: normocephalic, atraumatic Neck: supple Respiratory: diminished breath sounds Cardiovascular: regular rate and rhythm Gastrointestinal: soft, non-tender Extremities: normal pulses Results Results 24hrs Laboratory Tests Test 06/10/18 18:02 06/11/18 00:25 06/11/18 06:24 06/11/18 11:48 Bedside Glucose 120 148 158 White Blood Count 10.2 Red Blood Count 4.68 L Hemoglobin 13.9 L Hematocrit 40.9 L Mean Corpuscular 87.4 Volume Mean Corpuscular 29.7 Hemoglobin Mean Corpuscular 34.0 Hemoglobin Concent Red Cell 12.0 Distribution Width Platelet Count 277 Mean Platelet Volume 10.3 Immature 1.100 H Granulocytes % Neutrophils % 64.7 Lymphocytes % 23.6 Monocytes % 6.5 Eosinophils % 3.5 Basophils % 0.6 Nucleated Red Blood 0.0 Cells % Immature 0.110 H Granulocytes # Neutrophils # 6.6 Lymphocytes # 2.4 Monocytes # 0.7 Eosinophils # 0.4 Basophils # 0.1 Nucleated Red Blood 0.0 Cells # Sodium Level 137 Potassium Level 3.9 Chloride Level 97 Carbon Dioxide Level 30 Anion Gap 10 Blood Urea Nitrogen 7 Creatinine 0.68 Est Glomerular > 60 Filtrat Rate mL/min Glucose Level 173 Calcium Level 9.2 Test 06/11/18 12:25 Bedside Glucose 167 Medications Medication Current Medications Hydromorphone HCl (Dilaudid) 0.2 mg Q2H PRN IV .PAIN 1-5; Start 06/08/18 at 13:30 Hydromorphone HCl (Dilaudid) 0.4 mg Q2H PRN IV .PAIN 6-10; Start 06/08/18 at 13:30 Ketorolac Tromethamine (Toradol) 30 mg Q6H PRN IV .PAIN 6-10; Start 06/08/18 at 13:30; Stop 06/11/18 at 13:29 Diphenhydramine HCl (Benadryl) 25 mg Q4H PRN IV .PRURITUS; Start 06/08/18 at 13:30 Nalbuphine HCl (Nubain) 10 mg Q4H PRN IV .PRURITUS; Start 06/08/18 at 13:30 Ondansetron HCl (Zofran Inj) 4 mg Q6H PRN IV .NAUSEA/VOMITING; Start 06/08/18 at 13:30 Trimethobenzamide HCl (Tigan) 200 mg Q6H PRN IM .NAUSEA/VOMITING; Start 06/08/18 at 13:30 Naloxone HCl (Narcan) 0.2 mg Q2M PRN IV .RESP RATE; Start 06/08/18 at 13:30 Miscellaneous Information (* Miscellaneous Pharmacy Order) DURAMORPH: 0.2 MG SPI... GIVEN NEURAXIAL XX ; Start 06/08/18 at 13:30 Naloxone HCl (Narcan) 0.2 mg Q2M PRN IV RR 8 BREATHS/MIN OR LESS; Start 06/08/18 at 16:30 Hydromorphone HCl (Dilaudid PAEDODONTIST) Q4PCA IV Last administered on 06/11/18at 10:46; Admin Dose 6 MG; Start 06/08/18 at 16:30 Miscellaneous Information 1 ea NOTE XX ; Start 06/09/18 at 10:00 Glucose (Glutose) 15 gm Q15M PRN PO DECREASED GLUCOSE; Start 06/09/18 at 10:00 Glucose (Glutose) 22.5 gm Q15M PRN PO DECREASED GLUCOSE; Start 06/09/18 at 10:00 Dextrose (D50w Syringe) 25 ml Q15M PRN IV DECREASED GLUCOSE; Start 06/09/18 at 10:00 Dextrose (D50w Syringe) 50 ml Q15M PRN IV DECREASED GLUCOSE; Start 06/09/18 at 10:00 Glucagon (Glucagen) 1 mg Q15M PRN IM DECREASED GLUCOSE; Start 06/09/18 at 10:00 Glucose (Glutose) 15 gm Q15M PRN BUCCAL DECREASED GLUCOSE; Start 06/09/18 at 10:00 Diagnostic Test (Pha) (Accu-Chek) 1 ea 02 XX ; Start 06/10/18 at 02:00 Insulin Aspart (Novolog Insulin Pen) (Adult SC Insulin - Moder... Q6 SC Last administered on 06/11/18at 12:30; Admin Dose 2 UNIT; Start 06/09/18 at 18:00 Potassium Chloride/Dextrose/ Sod Cl 1,000 ml @ 100 mls/hr Q10H IV Last administered on 06/11/18at 05:13; Admin Dose 100 MLS/HR; Start 06/10/18 at 17:30 VALENCIA AZAR Jun 11, 2018 12:48
--- NOTE | 2018-06-11 13:45 | PN ---
DATE: 06/11/2018 Postop day #3 status post takedown of the colovesical fistula and repair of the opening in the bladde r and partial resection of the colon. SUBJECTIVE: Does not have any specific complaint. Stated that has barely passed gas today a little bit. No nausea, no vomiting, no bowel movement. OBJECTIVE: GENERAL: Awake, alert, oriented x3, in no acute distress. VITAL SIGNS: Temperature maximum today 98.5, heart rate 99, respirations 18, blood pressure 129/77, saturation 91% on room air. LABORATORY DATA: Sodium, potassium, BUN, creatinine normal. Hematology: WBC 10,200 with 64% segmen pravin, which is normal differential. Hemoglobin 13.9, hematocrit 40.9. PHYSICAL EXAM: HEART: Regular. LUNGS: Clear. ABDOMEN: Very distended and protruded with fat and slightly with gas. Bowel sound 3+/4+. EXTREMITIES: Legs no calf tenderness. No pitting edema. ASSESSMENT: Postop day #3. The patient is stable so far. Has been out of bed and walked a little b it. PLAN: We will continue current orders. We will keep the patient n.p.o. except ice chips. We will w ait until he passes a good amount of gas or bowel movement, then start him on diet probably tomorrow or the day after tomorrow. Meanwhile, encourage patient to have incentive spirometry and get out of bed and walk around. Dictated By: TITA SALAZAR MD PS/NTS Conf#: [id number] DID#: [id number] CC: BUD SWARTZ MD; CHANCE HUERTA MD;*EndCC*
[2018-06-11 14:00] VITALS: BP 128/75; PULSE 97; RESP 18
[2018-06-11 20:35] VITALS: BP 117/80; PULSE 87; RESP 19
[2018-06-12] MEDS: Insulin NOVOLOG SS MODERATE Algorithm(NPO/TPN/ENTERAL FEEDS) SC SCH ×4 (00:14→17:59)
[2018-06-12] MEDS: ACCUCHECK AT 2AM (Patients on SS coverage) XX SCH (02:00)
[2018-06-12 02:37] VITALS: BP 137/84; PULSE 67
[2018-06-12] MEDS: D5-NS + KCL 20 MEQ 1,000 ML IV SCH ×3 (03:33→17:52)
[2018-06-12 08:43] VITALS: BP 122/71; PULSE 104; RESP 19
--- NOTE | 2018-06-12 09:35 | PN ---
Date/Time of Note Date/Time of Note DATE: 06/12/18 TIME: 09:33 Assessment/Plan VTE Prophylaxis Risk score (from Nsg)>0 risk: 4 SCD applied (from Nsg): Yes Pharmacological prophylaxis: other Lines/Catheters IV Catheter Type (from Nrsg): Peripheral IV Urinary Cath still in place: Yes Reason Cath still needed: other (indicate) (bladder repair) Assessment/Plan Assessment/Plan s/p colovesical fistula takedown and repair start clears tomorrow otherwise doing well patient wants to continue family caseworker for pain control Result Diagram: 06/11/18 1148 06/11/18 1148 Results 24hrs Laboratory Tests Test 06/11/18 11:48 06/11/18 12:25 06/11/18 17:49 06/12/18 00:09 White Blood Count 10.2 Red Blood Count 4.68 L Hemoglobin 13.9 L Hematocrit 40.9 L Mean Corpuscular 87.4 Volume Mean Corpuscular 29.7 Hemoglobin Mean Corpuscular 34.0 Hemoglobin Concent Red Cell 12.0 Distribution Width Platelet Count 277 Mean Platelet Volume 10.3 Immature 1.100 H Granulocytes % Neutrophils % 64.7 Lymphocytes % 23.6 Monocytes % 6.5 Eosinophils % 3.5 Basophils % 0.6 Nucleated Red Blood 0.0 Cells % Immature 0.110 H Granulocytes # Neutrophils # 6.6 Lymphocytes # 2.4 Monocytes # 0.7 Eosinophils # 0.4 Basophils # 0.1 Nucleated Red Blood 0.0 Cells # Sodium Level 137 Potassium Level 3.9 Chloride Level 97 Carbon Dioxide Level 30 Anion Gap 10 Blood Urea Nitrogen 7 Creatinine 0.68 Est Glomerular > 60 Filtrat Rate mL/min Glucose Level 173 Calcium Level 9.2 Bedside Glucose 167 143 162 Test 06/12/18 05:38 Bedside Glucose 136 Subjective 24 Hr Interval Summary Free Text/Dictation patient doing well, no nausea no vomiting, tolerating ice chips but doesn't want any clears now Exam/Review of Systems Exam Vitals Vital Signs Date Temp Pulse Resp B/P (MAP) Pulse Ox O2 O2 Flow FiO2 Time Delivery Rate 06/12/18 98.2 104 19 122/71 94 08:43 (88) 06/12/18 Nasal 2.0 02:45 Cannula Intake and Output 06/11/18 06/11/18 06/12/18 1515:00 23:00 07:00 IntakeIntake Total 1000 ml 1200 ml OutputOutput Total 600 ml BalanceBalance 400 ml 1200 ml Exam c/d/i Results Results 24hrs Laboratory Tests Test 06/11/18 11:48 06/11/18 12:25 06/11/18 17:49 06/12/18 00:09 White Blood Count 10.2 Red Blood Count 4.68 L Hemoglobin 13.9 L Hematocrit 40.9 L Mean Corpuscular 87.4 Volume Mean Corpuscular 29.7 Hemoglobin Mean Corpuscular 34.0 Hemoglobin Concent Red Cell 12.0 Distribution Width Platelet Count 277 Mean Platelet Volume 10.3 Immature 1.100 H Granulocytes % Neutrophils % 64.7 Lymphocytes % 23.6 Monocytes % 6.5 Eosinophils % 3.5 Basophils % 0.6 Nucleated Red Blood 0.0 Cells % Immature 0.110 H Granulocytes # Neutrophils # 6.6 Lymphocytes # 2.4 Monocytes # 0.7 Eosinophils # 0.4 Basophils # 0.1 Nucleated Red Blood 0.0 Cells # Sodium Level 137 Potassium Level 3.9 Chloride Level 97 Carbon Dioxide Level 30 Anion Gap 10 Blood Urea Nitrogen 7 Creatinine 0.68 Est Glomerular > 60 Filtrat Rate mL/min Glucose Level 173 Calcium Level 9.2 Bedside Glucose 167 143 162 Test 06/12/18 05:38 Bedside Glucose 136 Medications Medication Current Medications Hydromorphone HCl (Dilaudid) 0.2 mg Q2H PRN IV .PAIN 1-5; Start 06/08/18 at 13:30 Hydromorphone HCl (Dilaudid) 0.4 mg Q2H PRN IV .PAIN 6-10; Start 06/08/18 at 13:30 Diphenhydramine HCl (Benadryl) 25 mg Q4H PRN IV .PRURITUS; Start 06/08/18 at 13:30 Nalbuphine HCl (Nubain) 10 mg Q4H PRN IV .PRURITUS; Start 06/08/18 at 13:30 Ondansetron HCl (Zofran Inj) 4 mg Q6H PRN IV .NAUSEA/VOMITING Last administered on 06/12/18at 09:16; Admin Dose 4 MG; Start 06/08/18 at 13:30 Trimethobenzamide HCl (Tigan) 200 mg Q6H PRN IM .NAUSEA/VOMITING; Start 06/08/18 at 13:30 Naloxone HCl (Narcan) 0.2 mg Q2M PRN IV .RESP RATE; Start 06/08/18 at 13:30 Miscellaneous Information (* Miscellaneous Pharmacy Order) DURAMORPH: 0.2 MG SPI... GIVEN NEURAXIAL XX ; Start 06/08/18 at 13:30 Naloxone HCl (Narcan) 0.2 mg Q2M PRN IV RR 8 BREATHS/MIN OR LESS; Start 06/08/18 at 16:30 Hydromorphone HCl (Dilaudid RESOLUTION REP) Q4PCA IV Last administered on 06/11/18at 23:57; Admin Dose 6 MG; Start 06/08/18 at 16:30 Miscellaneous Information 1 ea NOTE XX ; Start 06/09/18 at 10:00 Glucose (Glutose) 15 gm Q15M PRN PO DECREASED GLUCOSE; Start 06/09/18 at 10:00 Glucose (Glutose) 22.5 gm Q15M PRN PO DECREASED GLUCOSE; Start 06/09/18 at 10:00 Dextrose (D50w Syringe) 25 ml Q15M PRN IV DECREASED GLUCOSE; Start 06/09/18 at 10:00 Dextrose (D50w Syringe) 50 ml Q15M PRN IV DECREASED GLUCOSE; Start 06/09/18 at 10:00 Glucagon (Glucagen) 1 mg Q15M PRN IM DECREASED GLUCOSE; Start 06/09/18 at 10:00 Glucose (Glutose) 15 gm Q15M PRN BUCCAL DECREASED GLUCOSE; Start 06/09/18 at 10:00 Diagnostic Test (Pha) (Accu-Chek) 1 ea 02 XX ; Start 06/10/18 at 02:00 Insulin Aspart (Novolog Insulin Pen) (Adult SC Insulin - Moder... Q6 SC Last administered on 06/12/18at 00:14; Admin Dose 2 UNIT; Start 06/09/18 at 18:00 Potassium Chloride/Dextrose/ Sod Cl 1,000 ml @ 100 mls/hr Q10H IV Last administered on 06/12/18at 03:33; Admin Dose 100 MLS/HR; Start 06/10/18 at 17:30 Shannan HUERTA Jun 12, 2018 09:35
[2018-06-12] MEDS: HYDROmorphONE 0.2 MG/ML PCA IV SCH (10:56)
--- NOTE | 2018-06-12 13:35 | PN ---
Date/Time of Note Date/Time of Note DATE: 06/12/18 TIME: 13:35 Assessment/Plan VTE Prophylaxis Risk score (from Ns)>0 risk: 4 SCD applied (from Nsg): Yes Pharmacological prophylaxis: LMWH Lines/Catheters IV Catheter Type (from Nrsg): Peripheral IV Urinary Cath still in place: Yes Reason Cath still needed: skin wounds contaminated by urine Assessment/Plan Hospital Course -Recurrent diverticulitis -status post laparoscopic left hemicolectomy with primary anastomosis complicated by colovesical fistula -Sp takedown of enterovesical fistula, resection of colovesical fistula, partial colectomy, primary anastomosis and open repair of incarcerated incisional hernia and open lysis of adhesion. Result Diagram: 06/11/18 1148 06/11/18 1148 Results 24hrs Laboratory Tests Test 06/11/18 17:49 06/12/18 00:09 06/12/18 05:38 06/12/18 12:16 Bedside Glucose 143 162 136 161 Subjective 24 Hr Interval Summary Free Text/Dictation Patient still have abdominal pain Exam/Review of Systems Exam Vitals Vital Signs Date Temp Pulse Resp B/P (MAP) Pulse Ox O2 O2 Flow FiO2 Time Delivery Rate 06/12/18 09:55 06/12/18 98.2 104 122/71 94 08:43 (88) 06/12/18 Nasal 2.0 02:45 Cannula Intake and Output 06/11/18 06/11/18 06/12/18 1515:00 23:00 07:00 IntakeIntake Total 1000 ml 1200 ml OutputOutput Total 600 ml BalanceBalance 400 ml 1200 ml Constitutional: well developed Head: normocephalic, atraumatic Neck: supple Respiratory: diminished breath sounds Cardiovascular: regular rate and rhythm Gastrointestinal: soft, non-tender Extremities: normal pulses Results Results 24hrs Laboratory Tests Test 06/11/18 17:49 06/12/18 00:09 06/12/18 05:38 06/12/18 12:16 Bedside Glucose 143 162 136 161 Medications Medication Current Medications Hydromorphone HCl (Dilaudid) 0.2 mg Q2H PRN IV .PAIN 1-5; Start 06/08/18 at 13:30 Hydromorphone HCl (Dilaudid) 0.4 mg Q2H PRN IV .PAIN 6-10; Start 06/08/18 at 13:30 Diphenhydramine HCl (Benadryl) 25 mg Q4H PRN IV .PRURITUS; Start 06/08/18 at 13:30 Nalbuphine HCl (Nubain) 10 mg Q4H PRN IV .PRURITUS; Start 06/08/18 at 13:30 Ondansetron HCl (Zofran Inj) 4 mg Q6H PRN IV .NAUSEA/VOMITING Last administered on 06/12/18at 09:16; Admin Dose 4 MG; Start 06/08/18 at 13:30 Trimethobenzamide HCl (Tigan) 200 mg Q6H PRN IM .NAUSEA/VOMITING; Start 06/08/18 at 13:30 Naloxone HCl (Narcan) 0.2 mg Q2M PRN IV .RESP RATE; Start 06/08/18 at 13:30 Miscellaneous Information (* Miscellaneous Pharmacy Order) DURAMORPH: 0.2 MG SPI... GIVEN NEURAXIAL XX ; Start 06/08/18 at 13:30 Naloxone HCl (Narcan) 0.2 mg Q2M PRN IV RR 8 BREATHS/MIN OR LESS; Start 05/22 10/09 at 16:30 Hydromorphone HCl (Dilaudid IT NETWORK ARCHITECT) Q4PCA IV Last administered on 06/12/18at 10:56; Admin Dose 6 MG; Start 06/08/18 at 16:30 Miscellaneous Information 1 ea NOTE XX ; Start 06/09/18 at 10:00 Glucose (Glutose) 15 gm Q15M PRN PO DECREASED GLUCOSE; Start 06/09/18 at 10:00 Glucose (Glutose) 22.5 gm Q15M PRN PO DECREASED GLUCOSE; Start 06/09/18 at 10:00 Dextrose (D50w Syringe) 25 ml Q15M PRN IV DECREASED GLUCOSE; Start 06/09/18 at 10:00 Dextrose (D50w Syringe) 50 ml Q15M PRN IV DECREASED GLUCOSE; Start 06/09/18 at 10:00 Glucagon (Glucagen) 1 mg Q15M PRN IM DECREASED GLUCOSE; Start 06/09/18 at 10:00 Glucose (Glutose) 15 gm Q15M PRN BUCCAL DECREASED GLUCOSE; Start 06/09/18 at 10:00 Diagnostic Test (Pha) (Accu-Chek) 1 ea 02 XX ; Start 06/10/18 at 02:00 Insulin Aspart (Novolog Insulin Pen) (Adult SC Insulin - Moder... Q6 SC Last administered on 06/12/18at 12:40; Admin Dose 2 UNIT; Start 06/09/18 at 18:00 Potassium Chloride/Dextrose/ Sod Cl 1,000 ml @ 100 mls/hr Q10H IV Last a dministered on 06/12/18at 03:33; Admin Dose 100 MLS/HR; Start 06/10/18 at 17:30 VALENCIA AZAR Jun 12, 2018 13:35
[2018-06-12 14:00] VITALS: BP 110/65; PULSE 93; RESP 18
[2018-06-12 20:24] VITALS: BP 121/73; PULSE 83; RESP 18
[2018-06-13 00:31] VITALS: BP 125/75; PULSE 86; RESP 18
[2018-06-13] MEDS: HYDROmorphONE 0.2 MG/ML PCA IV SCH ×2 (01:05→10:22)
[2018-06-13] MEDS: ACCUCHECK AT 2AM (Patients on SS coverage) XX SCH (02:00)
[2018-06-13] MEDS: D5-NS + KCL 20 MEQ 1,000 ML IV SCH (03:40)
[2018-06-13] MEDS: Insulin NOVOLOG SS MODERATE Algorithm(NPO/TPN/ENTERAL FEEDS) SC SCH ×2 (06:00)
[2018-06-13 07:17] VITALS: BP 124/81; PULSE 104; RESP 18
[2018-06-13] MEDS: INSULIN ASPART [NOVOLOG] 3 ML PEN SC SCH ×4 (08:34→21:00)
[2018-06-13] MEDS ORDERED: morphine 2 MG INJ IV PRN (12:30)
--- NOTE | 2018-06-13 12:31 | PN ---
Date/Time of Note Date/Time of Note DATE: 06/13/18 TIME: 12:30 Assessment/Plan VTE Prophylaxis Risk score (from Nsg)>0 risk: 4 SCD applied (from Nsg): Yes Pharmacological prophylaxis: other Lines/Catheters IV Catheter Type (from Nrsg): Peripheral IV Urinary Cath still in place: Yes Reason Cath still needed: other (indicate) Assessment/Plan Assessment/Plan s/p colovesical fistula takedown start fulls tomorrow Result Diagram: 06/11/18 1148 06/11/18 1148 Results 24hrs Laboratory Tests Test 06/12/18 17:56 06/13/18 00:09 06/13/18 06:13 06/13/18 08:31 Bedside Glucose 159 136 139 161 Subjective 24 Hr Interval Summary Free Text/Dictation patient progressing and tolerating clears Exam/Review of Systems Exam Vitals Vital Signs Date Temp Pulse Resp B/P (MAP) Pulse Ox O2 O2 Flow FiO2 Time Delivery Rate 06/13/18 10:19 06/13/18 98.0 104 124/81 94 07:17 (95) 06/13/18 Nasal 2.0 03:43 Cannula Intake and Output 06/12/18 06/12/18 06/13/18 1515:00 23:00 07:00 IntakeIntake Total 800 ml 1400 ml OutputOutput Total 550 ml 200 ml 700 ml BalanceBalance -550 ml 600 ml 700 ml Exam c/d/i Results Results 24hrs Laboratory Tests Test 06/12/18 17:56 06/13/18 00:09 06/13/18 06:13 06/13/18 08:31 Bedside Glucose 159 136 139 161 Medications Medication Current Medications Hydromorphone HCl (Dilaudid) 0.2 mg Q2H PRN IV .PAIN 1-5; Start 06/08/18 at 13:30 Hydromorphone HCl (Dilaudid) 0.4 mg Q2H PRN IV .PAIN 6-10; Start 06/08/18 at 13:30 Diphenhydramine HCl (Benadryl) 25 mg Q4H PRN IV .PRURITUS; Start 06/08/18 at 1 3:30 Nalbuphine HCl (Nubain) 10 mg Q4H PRN IV .PRURITUS; Start 06/08/18 at 13:30 Ondansetron HCl (Zofran Inj) 4 mg Q6H PRN IV .NAUSEA/VOMITING Last administered on 06/12/18at 09:16; Admin Dose 4 MG; Start 06/08/18 at 13:30 Trimethobenzamide HCl (Tigan) 200 mg Q6H PRN IM .NAUSEA/VOMITING; Start at 13:30 Naloxone HCl (Narcan) 0.2 mg Q2M PRN IV .RESP RATE; Start 06/08/18 at 13:30 Miscellaneous Information (* Miscellaneous Pharmacy Order) DURAMORPH: 0.2 MG SPI... GIVEN NEURAXIAL XX ; Start 06/08/18 at 13:30 Naloxone HCl (Narcan) 0.2 mg Q2M PRN IV RR 8 BREATHS/MIN OR LESS; Start at 16:30 Hydromorphone HCl (Dilaudid STILL OPERATOR WHISKEY) Q4PCA IV Last administered on 06/13/18at 10:22; Admin Dose 6 MG; Start 06/08/18 at 16:30 Miscellaneous Information 1 ea NOTE XX ; Start 06/09/18 at 10:00 Glucose (Glutose) 15 gm Q15M PRN PO DECREASED GLUCOSE; Start 06/09/18 at 10:00 Glucose (Glutose) 22.5 gm Q15M PRN PO DECREASED GLUCOSE; Start 06/09/18 at 10:00 Dextrose (D50w Syringe) 25 ml Q15M PRN IV DECREASED GLUCOSE; Start 06/09/18 at 10:00 Dextrose (D50w Syringe) 50 ml Q15M PRN IV DECREASED GLUCOSE; Start 06/09/18 at 10:00 Glucagon (Glucagen) 1 mg Q15M PRN IM DECREASED GLUCOSE; Start 06/09/18 at 10:00 Glucose (Glutose) 15 gm Q15M PRN BUCCAL DECREASED GLUCOSE; Start 06/09/18 at 10:00 Diagnostic Test (Pha) (Accu-Chek) 1 ea 02 XX ; Start 06/10/18 at 02:00 Potassium Chloride/Dextrose/ Sod Cl 1,000 ml @ 100 mls/hr Q10H IV Last administered on 06/13/18at 03:40; Admin Dose 100 MLS/HR; Start 06/10/18 at 17:30 Insulin Aspart (Novolog Insulin Pen) NOVOLOG *MODERATE* ALGORITHM WITH MEALS BEDTIME SC Last administered on 06/13/18at 08:34; Admin Dose 2 UNIT; Start 06/13/18 at 08:30 Shannan HUERTA Jun 13, 2018 12:31
[2018-06-13 13:46] VITALS: BP 132/77; PULSE 100; RESP 18
[2018-06-13] MEDS: HYDROCODONE/APAP (5/325) TAB PO PRN ×2 (13:56→18:00)
--- NOTE | 2018-06-13 18:38 | PN ---
Date/Time of Note Date/Time of Note DATE: 06/13/18 TIME: 18:37 Assessment/Plan VTE Prophylaxis Risk score (from Nsg)>0 risk: 4 SCD applied (from Nsg): Yes Lines/Catheters IV Catheter Type (from Nrsg): Peripheral IV Urinary Cath still in place: Yes Assessment/Plan Assessment/Plan - Recurrent diverticulitis - status post laparoscopic left hemicolectomy with primary anastomosis complicated by colovesical fistula - Sp takedown of enterovesical fistula, resection of colovesical fistula, partial colectomy, primary anastomosis and open repair of incarcerated incisional hernia and open lysis of adhesion. Result Diagram: 06/11/18 1148 06/11/18 1148 Results 24hrs Laboratory Tests Test 06/13/18 00:09 06/13/18 06:13 06/13/18 08:31 06/13/18 12:54 Bedside Glucose 136 139 161 144 Test 06/13/18 18:02 Bedside Glucose 136 Exam/Review of Systems Exam Vitals Vital Signs Date Temp Pulse Resp B/P (MAP) Pulse Ox O2 O2 Flow FiO2 Time Delivery Rate 06/13/18 98.6 100 18 132/77 93 13:46 (95) 06/13/18 Nasal 2.0 03:43 Cannula Intake and Output 06/12/18 06/12/18 06/13/18 1515:00 23:00 07:00 IntakeIntake Total 800 ml 1400 ml OutputOutput Total 550 ml 200 ml 700 ml BalanceBalance -550 ml 600 ml 700 ml Results Results 24hrs Laboratory Tests Test 06/13/18 00:09 06/13/18 06:13 06/13/18 08:31 06/13/18 12:54 Bedside Glucose 136 139 161 144 Test 06/13/18 18:02 Bedside Glucose 136 Medications Medication Current Medications Diphenhydramine HCl (Benadryl) 25 mg Q4H PRN IV .PRURITUS; Start 06/08/18 at 13:30 Nalbuphine HCl (Nubain) 10 mg Q4H PRN IV .PRURITUS; Start 06/08/18 at 13:30 Ondansetron HCl (Zofran Inj) 4 mg Q6H PRN IV .NAUSEA/VOMITING Last administered on 06/12/18at 09:16; Admin Dose 4 MG; Start 06/08/18 at 13:30 Trimethobenzamide HCl (Tigan) 200 mg Q6H PRN IM .NAUSEA/VOMITING; Start 06/08 at 13:30 Naloxone HCl (Narcan) 0.2 mg Q2M PRN IV .RESP RATE; Start 06/08/18 at 13:30 Miscellaneous Information (* Miscellaneous Pharmacy Order) DURAMORPH: 0.2 MG SPI... GIVEN NEURAXIAL XX ; Start 06/08/18 at 13:30 Naloxone HCl (Narcan) 0.2 mg Q2M PRN IV RR 8 BREATHS/MIN OR LESS; Start 06/08/18 at 16:30 Miscellaneous Information 1 ea NOTE XX ; Start 06/09/18 at 10:00 Glucose (Glutose) 15 gm Q15M PRN PO DECREASED GLUCOSE; Start 06/09/18 at 10:00 Glucose (Glutose) 22.5 gm Q15M PRN PO DECREASED GLUCOSE; Start 06/09/18 at 10:00 Dextrose (D50w Syringe) 25 ml Q15M PRN IV DECREASED GLUCOSE; Start 06/09/18 at 10:00 Dextrose (D50w Syringe) 50 ml Q15M PRN IV DECREASED GLUCOSE; Start 06/09/18 at 10:00 Glucagon (Glucagen) 1 mg Q15M PRN IM DECREASED GLUCOSE; Start 06/09/18 at 10:00 Glucose (Glutose) 15 gm Q15M PRN BUCCAL DECREASED GLUCOSE; Start 06/09/18 at 10:00 Diagnostic Test (Pha) (Accu-Chek) 1 ea 02 XX ; Start 06/10/18 at 02:00 Insulin Aspart (Novolog Insulin Pen) NOVOLOG *MODERATE* ALGORITHM WITH MEALS BEDTIME SC Last administered on 06/13/18at 12:56; Admin Dose 2 UNIT; Start at 08:30 Acetaminophen/ Hydrocodone Bitart ([place] (5/325)) 1 tab Q4H PRN PO MODERATE PAIN LEVEL 4-6 Last administered on 06/13/18at 13:56; Admin Dose 1 TAB; Start 06/13/18 at 12:30 Morphine Sulfate (morphine) 2 mg Q2H PRN IV SEVERE PAIN LEVEL 7-10 Last administered on 06/13/18at 17:01; Admin Dose 2 MG; Start 06/13/18 at 12:30 Acetaminophen/ Hydrocodone Bitart ([place] (5/325)) 2 tab Q4H PRN PO PAIN LEVEL 6-10 Last administered on 06/13/18at 18:00; Admin Dose 2 TAB; Start 06/13/18 at 17:30 ZAYRA AVILA Jun 13, 2018 18:37
[2018-06-13 20:13] VITALS: BP 119/73; PULSE 93; RESP 18
[2018-06-14] MEDS: HYDROCODONE/APAP (5/325) TAB PO PRN ×4 (01:35→14:20)
[2018-06-14] MEDS: ACCUCHECK AT 2AM (Patients on SS coverage) XX SCH (02:00)
[2018-06-14 02:20] VITALS: BP 119/74; PULSE 85; RESP 18
[2018-06-14 07:49] VITALS: BP 123/83; PULSE 86; RESP 18
[2018-06-14] MEDS: INSULIN ASPART [NOVOLOG] 3 ML PEN SC SCH ×4 (07:50→20:43)
[2018-06-14 14:45] VITALS: BP 110/77; PULSE 102; RESP 20
[2018-06-14] MEDS ORDERED: ONDANSETRON 4 MG TAB PO PRN (16:30)
[2018-06-14 19:20] VITALS: BP 135/90; PULSE 81; RESP 20
--- NOTE | 2018-06-14 20:02 | PN ---
Date/Time of Note Date/Time of Note DATE: 06/14/18 TIME: 20:01 Assessment/Plan VTE Prophylaxis Risk score (from Nsg)>0 risk: 3 SCD applied (from Nsg): Yes Lines/Catheters IV Catheter Type (from Nrsg): Saline Lock Urinary Cath still in place: Yes Reason Cath still needed: urinary retention Assessment/Plan Assessment/Plan - Recurrent diverticulitis - status post laparoscopic left hemicolectomy with primary anastomosis complicated by colovesical fistula - Sp takedown of enterovesical fistula, resection of colovesical fistula, partial colectomy, primary anastomosis and open repair of incarcerated incisional hernia and open lysis of adhesion. Result Diagram: 06/11/18 1148 06/11/18 1148 Results 24hrs Laboratory Tests Test 06/13/18 22:37 06/14/18 08:19 06/14/18 12:41 06/14/18 17:09 Bedside Glucose 130 133 121 140 Exam/Review of Systems Exam Vitals Vital Signs Date Temp Pulse Resp B/P (MAP) Pulse Ox O2 O2 Flow FiO2 Time Delivery Rate 06/14/18 97.9 102 20 110/77 96 Room Air 14:45 (88) 06/13/18 2.0 20:00 Intake and Output 06/13/18 06/13/18 06/14/18 1515:00 23:00 07:00 IntakeIntake Total 720 ml 1200 ml OutputOutput Total 500 ml 900 ml BalanceBalance 720 ml -500 ml 300 ml Constitutional: alert, well developed, obese Psych: nl mood/affect Eyes: nl lids, nl sclera ENMT: nl external ears & nose Respiratory: diminished breath sounds Cardiovascular: nl pulses, other Gastrointestinal: soft Musculoskeletal: nl extremities to inspection Extremities: normal pulses Neurological: nl mental status, nl speech Skin: nl turgor Lymph: nontender Results Results 24hrs Laboratory Tests Test 06/13/18 22:37 06/14/18 08:19 06/14/18 12:41 06/14/18 17:09 Bedside Glucose 130 133 121 140 Medications Medication Current Medications Diphenhydramine HCl (Benadryl) 25 mg Q4H PRN IV .PRURITUS; Start 06/08/18 at 13:30 Nalbuphine HCl (Nubain) 10 mg Q4H PRN IV .PRURITUS; Start 06/08/18 at 13:30 Trimethobenzamide HCl (Tigan) 200 mg Q6H PRN IM .NAUSEA/VOMITING; Start 06/08/18 at 13:30 Naloxone HCl (Narcan) 0.2 mg Q2M PRN IV .RESP RATE; Start 06/08/18 at 13:30 Miscellaneous Information (* Miscellaneous Pharmacy Order) DURAMORPH: 0.2 MG SPI... GIVEN NEURAXIAL XX ; Start 06/08/18 at 13:30 Naloxone HCl (Narcan) 0.2 mg Q2M PRN IV RR 8 BREATHS/MIN OR LESS; Start 06/08/18 at 16:30 Miscellaneous Information 1 ea NOTE XX ; Start 06/09/18 at 10:00 Glucose (Glutose) 15 gm Q15M PRN PO DECREASED GLUCOSE; Start 06/09/18 at 10:00 Glucose (Glutose) 22.5 gm Q15M PRN PO DECREASED GLUCOSE; Start 06/09/18 at 10:00 Dextrose (D50w Syringe) 25 ml Q15M PRN IV DECREASED GLUCOSE; Start 06/09/18 at 10:00 Dextrose (D50w Syringe) 50 ml Q15M PRN IV DECREASED GLUCOSE; Start 06/09/18 at 10:00 Glucagon (Glucagen) 1 mg Q15M PRN IM DECREASED GLUCOSE; Start 06/09/18 at 10:00 Glucose (Glutose) 15 gm Q15M PRN BUCCAL DECREASED GLUCOSE; Start 06/09/18 at 10:00 Diagnostic Test (Pha) (Accu-Chek) 1 ea 02 XX ; Start 06/10/18 at 02:00 Insulin Aspart (Novolog Insulin Pen) NOVOLOG *MODERATE* ALGORITHM WITH MEALS BEDTIME SC Last administered on 06/13/18at 12:56; Admin Dose 2 UNIT; Start 06/13/18 at 08:30 Acetaminophen/ Hydrocodone Bitart ([place] (5/325)) 1 tab Q4H PRN PO MODERATE PAIN LEVEL 4-6 Last administered on 06/13/18at 13:56; Admin Dose 1 TAB; Start 06/13/18 at 12:30 Morphine Sulfate (morphine) 2 mg Q2H PRN IV SEVERE PAIN LEVEL 7-10 Last administered on 06/13/18at 17:01; Admin Dose 2 MG; Start 06/13/18 at 12:30 Acetaminophen/ Hydrocodone Bitart ([place] (5/325)) 2 tab Q4H PRN PO PAIN LEVEL 6-10 Last administered on 06/14/18 14:20; Admin Dose 2 TAB; Start 06/13/18 at 17:30 Ondansetron HCl (Zofran Tab) 4 mg Q6H PRN PO NAUSEA AND/OR VOMITING Last administered on 06/14/18 17:07; Admin Dose 4 MG; Start 06/14/18 at 16:30 ZAYRA AVILA Jun 14, 2018 20:02
[2018-06-15] MEDS: ACCUCHECK AT 2AM (Patients on SS coverage) XX SCH (02:00)
[2018-06-15 02:10] VITALS: BP 131/83; PULSE 120; RESP 20
[2018-06-15] MEDS: HYDROCODONE/APAP (5/325) TAB PO PRN ×4 (02:54→19:32)
[2018-06-15 08:03] VITALS: BP 118/76; RESP 18
[2018-06-15] MEDS: INSULIN ASPART [NOVOLOG] 3 ML PEN SC SCH ×4 (09:25→21:00)
--- NOTE | 2018-06-15 12:32 | PN ---
Date/Time of Note Date/Time of Note DATE: 06/15/18 TIME: 12:31 Assessment/Plan VTE Prophylaxis Risk score (from Nsg)>0 risk: 4 SCD applied (from Nsg): Yes Pharmacological prophylaxis: other Lines/Catheters IV Catheter Type (from Nrsg): Saline Lock Urinary Cath still in place: Yes Reason Cath still needed: other (indicate) Assessment/Plan Assessment/Plan s/p colovesical fistula takedown and bladder repair will get retrourethrocystogram as outpatient prior to pulling kyle catheter Result Diagram: 06/11/18 1148 06/11/18 1148 Results 24hrs Laboratory Tests Test 06/14/18 12:41 06/14/18 17:09 06/14/18 20:40 06/15/18 09:22 Bedside Glucose 121 140 129 123 Subjective 24 Hr Interval Summary Free Text/Dictation steady improvement tolerating diet with normal bm Exam/Review of Systems Exam Vitals Vital Signs Date Temp Pulse Resp B/P (MAP) Pulse Ox O2 O2 Flow FiO2 Time Delivery Rate 06/15/18 98.7 18 118/76 95 Room Air 08:03 (90) 06/15/18 120 02:10 06/14/18 2.0 20:00 Intake and Output 06/14/18 06/14/18 06/15/18 1515:00 23:00 07:00 IntakeIntake Total 500 ml 120 ml OutputOutput Total 450 ml 1000 ml BalanceBalance 50 ml -880 ml Exam c/d/i Results Results 24hrs Laboratory Tests Test 06/14/18 12:41 06/14/18 17:09 06/14/18 20:40 06/15/18 09:22 Bedside Glucose 121 140 129 123 Medications Medication Current Medications Diphenhydramine HCl (Benadryl) 25 mg Q4H PRN IV .PRURITUS; Start 06/08/18 at 13:30 Nalbuphine HCl (Nubain) 10 mg Q4H PRN IV .PRURITUS; Start 06/08/18 at 13:30 Trimethobenzamide HCl (Tigan) 200 mg Q6H PRN IM .NAUSEA/VOMITING; Start 06/08/18 at 13:30 Naloxone HCl (Narcan) 0.2 mg Q2M PRN IV .RESP RATE; Start 06/08/18 at 13:30 Miscellaneous Information (* Miscellaneous Pharmacy Order) DURAMORPH: 0.2 MG SPI... GIVEN NEURAXIAL XX ; Start 06/08/18 at 13:30 Naloxone HCl (Narcan) 0.2 mg Q2M PRN IV RR 8 BREATHS/MIN OR LESS; Start 06/08/18 at 16:30 Miscellaneous Information 1 ea NOTE XX ; Start 06/09/18 at 10:00 Glucose (Glutose) 15 gm Q15M PRN PO DECREASED GLUCOSE; Start 06/09/18 at 10:00 Glucose (Glutose) 22.5 gm Q15M PRN PO DECREASED GLUCOSE; Start 06/09/18 at 10:00 Dextrose (D50w Syringe) 25 ml Q15M PRN IV DECREASED GLUCOSE; Start 06/09/18 at 10:00 Dextrose (D50w Syringe) 50 ml Q15M PRN IV DECREASED GLUCOSE; Start 06/09/18 at 10:00 Glucagon (Glucagen) 1 mg Q15M PRN IM DECREASED GLUCOSE; Start 06/09/18 at 10:00 Glucose (Glutose) 15 gm Q15M PRN BUCCAL DECREASED GLUCOSE; Start 06/09/18 at 10:00 Diagnostic Test (Pha) (Accu-Chek) 1 ea 02 XX ; Start 06/10/18 at 02:00 Insulin Aspart (Novolog Insulin Pen) NOVOLOG *MODERATE* ALGORITHM WITH MEALS BEDTIME SC Last administered on 06/13/18at 12:56; Admin Dose 2 UNIT; Start 06/13/18 at 08:30 Acetaminophen/ Hydrocodone Bitart ([place] (5/325)) 1 tab Q4H PRN PO MODERATE PAIN LEVEL 4-6 Last administered on 06/13/18at 13:56; Admin Dose 1 TAB; Start 06/13/18 at 12:30 Morphine Sulfate (morphine) 2 mg Q2H PRN IV SEVERE PAIN LEVEL 7-10 Last administered on 06/13/18at 17:01; Admin Dose 2 MG; Start 06/13/18 at 12:30 Acetaminophen/ Hydrocodone Bitart ([place] (5/325)) 2 tab Q4H PRN PO PAIN LEVEL 6-10 Last administered on 06/15/18at 09:26; Admin Dose 2 TAB; Start 06/13/18 at 17:30 Ondansetron HCl (Zofran Tab) 4 mg Q6H PRN PO NAUSEA AND/OR VOMITING Last administered on 06/14/18at 17:07; Admin Dose 4 MG; Start 06/14/18 at 16:30 Shannan HUERTA Jun 15, 2018 12:32
[2018-06-15 14:59] VITALS: BP 124/74; PULSE 103; RESP 20
--- NOTE | 2018-06-15 15:30 | PN ---
Date/Time of Note Date/Time of Note DATE: 06/15/18 TIME: 15:29 Assessment/Plan VTE Prophylaxis Risk score (from Ns)>0 risk: 4 SCD applied (from Ns): Yes SCD contraindicated: other Pharmacological prophylaxis: other Pharm contraindication: other Lines/Catheters IV [facility]ter [facility]from [facility] Saline Lock Urinary Cath still in place: Yes Reason Cath still needed: urinary retention Assessment/Plan Assessment/Plan - Recurrent diverticulitis - status post laparoscopic left hemicolectomy with primary anastomosis compli cated by colovesical fistula - Sp takedown of enterovesical fistula, resection of colovesical fistula, partial colectomy, primary anastomosis and open repair of incarcerated incisional hernia and open lysis of adhesion. Result Diagram: 06/11/18 1148 06/11/18 1148 Results 24hrs Laboratory Tests Test 06/14/18 17:09 06/14/18 20:40 06/15/18 09:22 06/15/18 13:07 Bedside Glucose 140 129 123 139 Subjective 24 Hr Interval Summary Free Text/Dictation walking in the [address] with family feels better Eyes: no complaints Respiratory: no complaints Cardiovascular: no complaints Gastrointestinal: no complaints Musculoskeletal: no complaints Skin: no complaints Neurologic: no complaints Endocrine: no complaints Psychological: nl mood/affect Exam/Review of Systems Exam Vitals Vital Signs Date Temp Pulse Resp B/P (MAP) Pulse Ox O2 O2 Flow FiO2 Time Delivery Rate 06/15/18 97.8 103 20 124/74 93 Room Air 14:59 (91) 06/14/18 2.0 20:00 Intake and Output 06/14/18 06/14/18 06/15/18 1515:00 23:00 07:00 IntakeIntake Total 500 ml 120 ml OutputOutput Total 450 ml 1000 ml BalanceBalance 50 ml -880 ml Constitutional: alert, obese Psych: nl mood/affect Head: atraumatic Eyes: EOMI, nl lids, nl sclera ENMT: nl external ears & nose Neck: non-tender Respiratory: clear to auscultation Cardiovascular: nl pulses, other Gastrointestinal: soft Musculoskeletal: nl extremities to inspection Extremities: normal pulses Neurological: nl mental status, nl speech Skin: nl turgor Lymph: nontender Results Results 24hrs Laboratory Tests Test 06/14/18 17:09 06/14/18 20:40 06/15/18 09:22 06/15/18 13:07 Bedside Glucose 140 129 123 139 Medications Medication Current Medications Diphenhydramine HCl (Benadryl) 25 mg Q4H PRN IV .PRURITUS; Start 06/08/18 at 13:30 Nalbuphine HCl (Nubain) 10 mg Q4H PRN IV .PRURITUS; Start 06/08/18 at 13:30 Trimethobenzamide HCl (Tigan) 200 mg Q6H PRN IM .NAUSEA/VOMITING; Start 06/08/18 at 13:30 Naloxone HCl (Narcan) 0.2 mg Q2M PRN IV .RESP RATE; Start 06/08/18 at 13:30 Miscellaneous Information (* Miscellaneous Pharmacy Order) DURAMORPH: 0.2 MG S PI... GIVEN NEURAXIAL XX ; Start 06/08/18 at 13:30 Naloxone HCl (Narcan) 0.2 mg Q2M PRN IV RR 8 BREATHS/MIN OR LESS; Start 06/08/18 at 16:30 Miscellaneous Information 1 ea NOTE XX ; Start 06/09/18 at 10:00 Glucose (Glutose) 15 gm Q15M PRN PO DECREASED GLUCOSE; Start 06/09/18 at 10:00 Glucose (Glutose) 22.5 gm Q15M PRN PO DECREASED GLUCOSE; Start 06/09/18 at 10:00 Dextrose (D50w Syringe) 25 ml Q15M PRN IV DECREASED GLUCOSE; Start 06/09/18 at 10:00 Dextrose (D50w Syringe) 50 ml Q15M PRN IV DECREASED GLUCOSE; Start 06/09/18 at 10:00 Glucagon (Glucagen) 1 mg Q15M PRN IM DECREASED GLUCOSE; Start 06/09/18 at 10:00 Glucose (Glutose) 15 gm Q15M PRN BUCCAL DECREASED GLUCOSE; Start 06/09/18 at 10:00 Diagnostic Test (Pha) (Accu-Chek) 1 ea 02 XX ; Start 06/10/18 at 02:00 Insulin Aspart (Novolog Insulin Pen) NOVOLOG *MODERATE* ALGORITHM WITH MEALS BEDTIME SC Last administered on 06/13/18at 12:56; Admin Dose 2 UNIT; Start 06/13/18 at 08:30 Acetaminophen/ Hydrocodone Bitart ([place] (5/325)) 1 tab Q4H PRN PO MODERATE PAIN LEVEL 4-6 Last administered on 06/13/18 13:56; Admin Dose 1 TAB; Start 06/13/18 at 12:30 Morphine Sulfate (morphine) 2 mg Q2H PRN IV SEVERE PAIN LEVEL 7-10 Last adminis tered on 06/13/18 17:01; Admin Dose 2 MG; Start 06/13/18 at 12:30 Acetaminophen/ Hydrocodone Bitart ([place] (5/325)) 2 tab Q4H PRN PO PAIN LEVEL 6-10 Last administered on 06/15/18 13:20; Admin Dose 2 TAB; Start 06/13/18 at 17:30 Ondansetron HCl (Zofran Tab) 4 mg Q6H PRN PO NAUSEA AND/OR VOMITING Last administered on 06/14/18 17:07; Admin Dose 4 MG; Start 06/14/18 at 16:30 ZAYRA AVILA Jun 15, 2018 15:30
[2018-06-15 19:48] VITALS: BP 109/66; PULSE 93; RESP 18
[2018-06-16] MEDS: ACCUCHECK AT 2AM (Patients on SS coverage) XX SCH (02:00)
[2018-06-16 02:40] VITALS: BP 121/77; PULSE 76; RESP 18
[2018-06-16] MEDS: HYDROCODONE/APAP (5/325) TAB PO PRN ×3 (06:20→21:05)
[2018-06-16 07:33] VITALS: BP 132/79; PULSE 88; RESP 19
--- NOTE | 2018-06-16 08:35 | PN ---
Date/Time of Note Date/Time of Note DATE: 06/16/18 TIME: 08:35 Assessment/Plan VTE Prophylaxis Risk score (from Ns)>0 risk: 3 SCD applied (from Nsg): Yes Pharmacological prophylaxis: other Lines/Catheters IV Catheter Type (from Nrsg): Saline Lock Urinary Cath still in place: Yes Reason Cath still needed: other (indicate) Assessment/Plan Assessment/Plan s/p colovesical fistula takedown dc tomorrow Results 24hrs Laboratory Tests Test 06/15/18 09:22 06/15/18 13:07 06/15/18 17:55 06/15/18 20:59 Bedside Glucose 123 139 127 156 Test 06/16/18 08:21 Bedside Glucose 159 Subjective 24 Hr Interval Summary Free Text/Dictation patient progressing well Exam/Review of Systems Exam Vitals Vital Signs Date Temp Pulse Resp B/P (MAP) Pulse Ox O2 O2 Flow FiO2 Time Delivery Rate 06/16/18 98.2 88 19 132/79 98 07:33 (96) 06/15/18 Room Air 14:59 06/14/18 2.0 20:00 Intake and Output 06/15/18 06/15/18 06/16/18 1515:00 23:00 07:00 IntakeIntake Total 180 ml OutputOutput Total 550 ml 300 ml BalanceBalance -550 ml -120 ml Exam c/d/i Results Results 24hrs Laboratory Tests Test 06/15/18 09:22 06/15/18 13:07 06/15/18 17:55 06/15/18 20:59 Bedside Glucose 123 139 127 156 Test 06/16/18 08:21 Bedside Glucose 159 Medications Medication Current Medications Diphenhydramine HCl (Benadryl) 25 mg Q4H PRN IV .PRURITUS; Start 06/08/18 at 13:30 Nalbuphine HCl (Nubain) 10 mg Q4H PRN IV .PRURITUS; Start 06/08/18 at 13:30 Trimethobenzamide HCl (Tigan) 200 mg Q6H PRN IM .NAUSEA/VOMITING; Start 06/08/18 at 13:30 Naloxone HCl (Narcan) 0.2 mg Q2M PRN IV .RESP RATE; Start 06/08/18 at 13:30 Miscellaneous Information (* Miscellaneous Pharmacy Order) DURAMORPH: 0.2 MG SPI... GIVEN NEURAXIAL XX ; Start 06/08/18 at 13:30 Naloxone HCl (Narcan) 0.2 mg Q2M PRN IV RR 8 BREATHS/MIN OR LESS; Start 06/08/18 at 16:30 Miscellaneous Information 1 ea NOTE XX ; Start 06/09/18 at 10:00 Glucose (Glutose) 15 gm Q15M PRN PO DECREASED GLUCOSE; Start 06/09/18 at 10:00 Glucose (Glutose) 22.5 gm Q15M PRN PO DECREASED GLUCOSE; Start 06/09/18 at 10:00 Dextrose (D50w Syringe) 25 ml Q15M PRN IV DECREASED GLUCOSE; Start 06/09/18 at 10:00 Dextrose (D50w Syringe) 50 ml Q15M PRN IV DECREASED GLUCOSE; Start 06/09/18 at 10:00 Glucagon (Glucagen) 1 mg Q15M PRN IM DECREASED GLUCOSE; Start 06/09/18 at 10:00 Glucose (Glutose) 15 gm Q15M PRN BUCCAL DECREASED GLUCOSE; Start 06/09/18 at 10:00 Diagnostic Test (Pha) (Accu-Chek) 1 ea 02 XX ; Start 06/10/18 at 02:00 Insulin Aspart (Novolog Insulin Pen) NOVOLOG *MODERATE* ALGORITHM WITH MEALS BEDTIME SC Last administered on 06/13/18at 12:56; Admin Dose 2 UNIT; Start 06/13/18 at 08:30 Acetaminophen/ Hydrocodone Bitart ([place] (5/325)) 1 tab Q4H PRN PO MODERATE PAIN LEVEL 4-6 Last administered on 06/16/18at 06:20; Admin Dose 1 TAB; Start 06/13/18 at 12:30 Morphine Sulfate (morphine) 2 mg Q2H PRN IV SEVERE PAIN LEVEL 7-10 Last administered on 06/13/18at 17:01; Admin Dose 2 MG; Start 06/13/18 at 12:30 Acetaminophen/ Hydrocodone Bitart ([place] (5/325)) 2 tab Q4H PRN PO PAIN LEVEL 6-10 Last administered on 06/15/18at 19:32; Admin Dose 2 TAB; Start 06/13/18 at 17:30 Ondansetron HCl (Zofran Tab) 4 mg Q6H PRN PO NAUSEA AND/OR VOMITING Last administered on 06/14/18at 17:07; Admin Dose 4 MG; Start 06/14/18 at 16:30 Shannan HUERTA Jun 16, 2018 08:35
[2018-06-16] MEDS: INSULIN ASPART [NOVOLOG] 3 ML PEN SC SCH ×4 (08:58→21:00)
--- NOTE | 2018-06-16 13:10 | PN ---
Date/Time of Note Date/Time of Note DATE: 06/16/18 TIME: 13:10 Assessment/Plan VTE Prophylaxis Risk score (from Nsg)>0 risk: 3 SCD applied (from Nsg): Yes Lines/Catheters IV Catheter Type (from Nrsg): Saline Lock Urinary Cath still in place: Yes Reason Cath still needed: urinary retention Assessment/Plan Assessment/Plan - Recurrent diverticulitis - status post laparoscopic left hemicolectomy with primary anastomosis comp licated by colovesical fistula - Sp takedown of enterovesical fistula, resection of colovesical fistula, partial colectomy, primary anastomosis and open repair of incarcerated incisional hernia and open lysis of adhesion. Results 24hrs Laboratory Tests Test 06/15/18 17:55 06/15/18 20:59 06/16/18 08:21 06/16/18 12:39 Bedside Glucose 127 156 159 112 Subjective 24 Hr Interval Summary Free Text/Dictation c/o rectal pain during defecating Gastrointestinal: pain (recatl pain ) Exam/Review of Systems Exam Vitals Vital Signs Date Temp Pulse Resp B/P (MAP) Pulse Ox O2 O2 Flow FiO2 Time Delivery Rate 06/16/18 98.2 88 19 132/79 98 07:33 (96) 06/15/18 Room Air 14:59 06/14/18 2.0 20:00 Intake and Output 06/15/18 06/15/18 06/16/18 1414:59 22:59 06:59 IntakeIntake Total 180 ml OutputOutput Total 550 ml 300 ml BalanceBalance -550 ml -120 ml Constitutional: alert, well developed, obese Psych: nl mood/affect Eyes: nl lids, nl sclera ENMT: nl external ears & nose Neck: non-tender Respiratory: clear to auscultation Cardiovascular: nl pulses, other Gastrointestinal: soft, non-tender Musculoskeletal: nl extremities to inspection Neurological: nl speech Lymph: nontender Results Results 24hrs Laboratory Tests Test 06/15/18 17:55 06/15/18 20:59 06/16/18 08:21 06/16/18 12:39 Bedside Glucose 127 156 159 112 Medications Medication Current Medications Diphenhydramine HCl (Benadryl) 25 mg Q4H PRN IV .PRURITUS; Start 06/08/18 at 13:30 Nalbuphine HCl (Nubain) 10 mg Q4H PRN IV .PRURITUS; Start 06/08/18 at 13:30 Trimethobenzamide HCl (Tigan) 200 mg Q6H PRN IM .NAUSEA/VOMITING; Start 06/08/18 at 13:30 Naloxone HCl (Narcan) 0.2 mg Q2M PRN IV .RESP RATE; Start 06/08/18 at 13:30 Miscellaneous Information (* Miscellaneous Pharmacy Order) DURAMORPH: 0.2 MG SPI... GIVEN NEURAXIAL XX ; Start 06/08/18 at 13:30 Naloxone HCl (Narcan) 0.2 mg Q2M PRN IV RR 8 BREATHS/MIN OR LESS; Start 06/08/18 at 16:30 Miscellaneous Information 1 ea NOTE XX ; Start 06/09/18 at 10:00 Glucose (Glutose) 15 gm Q15M PRN PO DECREASED GLUCOSE; Start 06/09/18 at 10:00 Glucose (Glutose) 22.5 gm Q15M PRN PO DECREASED GLUCOSE; Start 06/09/18 at 10:00 Dextrose (D50w Syringe) 25 ml Q15M PRN IV DECREASED GLUCOSE; Start 06/09/18 at 10:00 Dextrose (D50w Syringe) 50 ml Q15M PRN IV DECREASED GLUCOSE; Start 06/09/18 at 10:00 Glucagon (Glucagen) 1 mg Q15M PRN IM DECREASED GLUCOSE; Start 06/09/18 at 10:00 Glucose (Glutose) 15 gm Q15M PRN BUCCAL DECREASED GLUCOSE; Start 06/09/18 at 10:00 Diagnostic Test (Pha) (Accu-Chek) 1 ea 02 XX ; Start 06/10/18 at 02:00 Insulin Aspart (Novolog Insulin Pen) NOVOLOG *MODERATE* ALGORITHM WITH MEALS BEDTIME SC Last administered on 06/16/18at 08:58; Admin Dose 2 UNIT; Start 06/13/18 at 08:30 Acetaminophen/ Hydrocodone Bitart ([place] (5/325)) 1 tab Q4H PRN PO MODERATE PAIN LEVEL 4-6 Last administered on 06/16/18at 12:53; Admin Dose 1 TAB; Start 06/13/18 at 12:30 Morphine Sulfate (morphine) 2 mg Q2H PRN IV SEVERE PAIN LEVEL 7-10 Last administered on 06/13/18at 17:01; Admin Dose 2 MG; Start 06/13/18 at 12:30 Acetaminophen/ Hydrocodone Bitart ([place] (5/325)) 2 tab Q4H PRN PO PAIN LEVEL 6-10 Last administered on 06/15/18at 19:32; Admin Dose 2 TAB; Start 06/13/18 at 17:30 Ondansetron HCl (Zofran Tab) 4 mg Q6H PRN PO NAUSEA AND/OR VOMITING Last administered on 06/14/18at 17:07; Admin Dose 4 MG; Start 06/14/18 at 16:30 ZAYRA AVILA Jun 16, 2018 13:10
[2018-06-16 15:53] VITALS: BP 128/68; RESP 18
[2018-06-16 19:40] VITALS: BP 122/77; PULSE 89; RESP 18
[2018-06-17] MEDS: ACCUCHECK AT 2AM (Patients on SS coverage) XX SCH (02:00)
[2018-06-17 02:39] VITALS: BP 108/65; PULSE 80; RESP 18
[2018-06-17] MEDS: INSULIN ASPART [NOVOLOG] 3 ML PEN SC SCH ×4 (07:50→20:48)
[2018-06-17 08:11] VITALS: BP 129/77; PULSE 93; RESP 18
--- NOTE | 2018-06-17 11:34 | PN ---
Date/Time of Note Date/Time of Note DATE: 06/17/18 TIME: 11:32 Assessment/Plan VTE Prophylaxis Risk score (from Ns)>0 risk: 4 SCD applied (from Ns): Yes Pharmacological prophylaxis: other Lines/Catheters IV Catheter Type (from Nrs): Saline Lock Urinary Cath still in place: Yes Reason Cath still needed: other (indicate) Assessment/Plan Assessment/Plan s/p colovesical fistula takedown and bladder repair with full feeling will get cystogram Result Diagram: 06/17/18 0425 06/17/18 0425 Results 24hrs Laboratory Tests Test 06/16/18 12:39 06/16/18 13:55 06/16/18 17:29 06/16/18 21:01 Bedside Glucose 112 126 147 White Blood Count 13.3 #H Red Blood Count 4.99 Hemoglobin 14.6 Hematocrit 42.7 Mean Corpuscular 85.6 Volume Mean Corpuscular 29.3 Hemoglobin Mean Corpuscular 34.2 Hemoglobin Concent Red Cell 12.2 Distribution Width Platelet Count 437 #H Mean Platelet Volume 9.8 Immature 2.000 H Granulocytes % Neutrophils % 60.2 Lymphocytes % 28.1 Monocytes % 4.7 Eosinophils % 4.1 Basophils % 0.9 Nucleated Red Blood 0.0 Cells % Immature 0.260 H Granulocytes # Neutrophils # 8.0 H Lymphocytes # 3.7 H Monocytes # 0.6 Eosinophils # 0.6 H Basophils # 0.1 Nucleated Red Blood 0.0 Cells # Sodium Level 140 Potassium Level 3.3 L Chloride Level 99 Carbon Dioxide Level 29 Anion Gap 12 Blood Urea Nitrogen 13 Creatinine 0.78 Est Glomerular > 60 Filtrat Rate mL/min Glucose Level 154 Hemoglobin A1c 8.0 H Calcium Level 10.1 Test 06/17/18 04:25 06/17/18 08:44 White Blood Count 10.1 # Red Blood Count 4.78 Hemoglobin 14.0 Hematocrit 41.2 L Mean Corpuscular 86.2 Volume Mean Corpuscular 29.3 Hemoglobin Mean Corpuscular 34.0 Hemoglobin Concent Red Cell 12.0 Distribution Width Platelet Count 403 Mean Platelet Volume 9.7 Immature 2.300 H Granulocytes % Neutrophils % 53.3 Lymphocytes % 32.1 Monocytes % 5.5 Eosinophils % 5.6 Basophils % 1.2 Nucleated Red Blood 0.0 Cells % Immature 0.230 H Granulocytes # Neutrophils # 5.4 Lymphocytes # 3.3 H Monocytes # 0.6 Eosinophils # 0.6 H Basophils # 0.1 Nucleated Red Blood 0.0 Cells # Sodium Level 139 Potassium Level 3.4 L Chloride Level 99 Carbon Dioxide Level 28 Anion Gap 12 Blood Urea Nitrogen 12 Creatinine 0.65 Est Glomerular > 60 Filtrat Rate mL/min Glucose Level 123 Calcium Level 9.8 Bedside Glucose 132 Subjective 24 Hr Interval Summary Free Text/Dictation patient with full sensation in the bladder Exam/Review of Systems Exam Vitals Vital Signs Date Temp Pulse Resp B/P (MAP) Pulse Ox O2 O2 Flow FiO2 Time Delivery Rate 06/17/18 98.0 93 18 129/77 96 08:11 (94) 06/16/18 Room Air 15:53 06/14/18 2.0 20:00 Intake and Output 06/16/18 06/16/18 06/17/18 1515:00 23:00 07:00 IntakeIntake Total 220 ml 120 ml OutputOutput Total 900 ml BalanceBalance 220 ml 120 ml -900 ml Exam c/d/i Results Results 24hrs Laboratory Tests Test 06/16/18 12:39 06/16/18 13:55 06/16/18 17:29 06/16/18 21:01 Bedside Glucose 112 126 147 White Blood Count 13.3 #H Red Blood Count 4.99 Hemoglobin 14.6 Hematocrit 42.7 Mean Corpuscular 85.6 Volume Mean Corpuscular 29.3 Hemoglobin Mean Corpuscular 34.2 Hemoglobin Concent Red Cell 12.2 Distribution Width Platelet Count 437 #H Mean Platelet Volume 9.8 Immature 2.000 H Granulocytes % Neutrophils % 60.2 Lymphocytes % 28.1 Monocytes % 4.7 Eosinophils % 4.1 Basophils % 0.9 Nucleated Red Blood 0.0 Cells % Immature 0.260 H Granulocytes # Neutrophils # 8.0 H Lymphocytes # 3.7 H Monocytes # 0.6 Eosinophils # 0.6 H Basophils # 0.1 Nucleated Red Blood 0.0 Cells # Sodium Level 140 Potassium Level 3.3 L Chloride Level 99 Carbon Dioxide Level 29 Anion Gap 12 Blood Urea Nitrogen 13 Creatinine 0.78 Est Glomerular > 60 Filtrat Rate mL/min Glucose Level 154 Hemoglobin A1c 8.0 H Calcium Level 10.1 Test 06/17/18 04:25 06/17/18 08:44 White Blood Count 10.1 # Red Blood Count 4.78 Hemoglobin 14.0 Hematocrit 41.2 L Mean Corpuscular 86.2 Volume Mean Corpuscular 29.3 Hemoglobin Mean Corpuscular 34.0 Hemoglobin Concent Red Cell 12.0 Distribution Width Platelet Count 403 Mean Platelet Volume 9.7 Immature 2.300 H Granulocytes % Neutrophils % 53.3 Lymphocytes % 32.1 Monocytes % 5.5 Eosinophils % 5.6 Basophils % 1.2 Nucleated Red Blood 0.0 Cells % Immature 0.230 H Granulocytes # Neutrophils # 5.4 Lymphocytes # 3.3 H Monocytes # 0.6 Eosinophils # 0.6 H Basophils # 0.1 Nucleated Red Blood 0.0 Cells # Sodium Level 139 Potassium Level 3.4 L Chloride Level 99 Carbon Dioxide Level 28 Anion Gap 12 Blood Urea Nitrogen 12 Creatinine 0.65 Est Glomerular > 60 Filtrat Rate mL/min Glucose Level 123 Calcium Level 9.8 Bedside Glucose 132 Medications Medication Current Medications Diphenhydramine HCl (Benadryl) 25 mg Q4H PRN IV .PRURITUS; Start 06/08/18 at 13:30 Nalbuphine HCl (Nubain) 10 mg Q4H PRN IV .PRURITUS; Start 06/08/18 at 13:30 Trimethobenzamide HCl (Tigan) 200 mg Q6H PRN IM .NAUSEA/VOMITING; Start 06/08/18 at 13:30 Naloxone HCl (Narcan) 0.2 mg Q2M PRN IV .RESP RATE; Start 06/08/18 at 13:30 Miscellaneous Information (* Miscellaneous Pharmacy Order) DURAMORPH: 0.2 MG SPI... GIVEN NEURAXIAL XX ; Start 06/08/18 at 13:30 Naloxone HCl (Narcan) 0.2 mg Q2M PRN IV RR 8 BREATHS/MIN OR LESS; Start 06/08/18 at 16:30 Miscellaneous Information 1 ea NOTE XX ; Start 06/09/18 at 10:00 Glucose (Glutose) 15 gm Q15M PRN PO DECREASED GLUCOSE; Start 06/09/18 at 10:00 Glucose (Glutose) 22.5 gm Q15M PRN PO DECREASED GLUCOSE; Start 06/09/18 at 10:00 Dextrose (D50w Syringe) 25 ml Q15M PRN IV DECREASED GLUCOSE; Start 06/09/18 at 10:00 Dextrose (D50w Syringe) 50 ml Q15M PRN IV DECREASED GLUCOSE; Start 06/09/18 at 10:00 Glucagon (Glucagen) 1 mg Q15M PRN IM DECREASED GLUCOSE; Start 06/09/18 at 10:00 Glucose (Glutose) 15 gm Q15M PRN BUCCAL DECREASED GLUCOSE; Start 06/09/18 at 10:00 Diagnostic Test (Pha) (Accu-Chek) 1 ea 02 XX ; Start 06/10/18 at 02:00 Insulin Aspart (Novolog Insulin Pen) NOVOLOG *MODERATE* ALGORITHM WITH MEALS BEDTIME SC Last administered on 06/16/18 08:58; Admin Dose 2 UNIT; Start 06/13/18 at 08:30 Acetaminophen/ Hydrocodone Bitart ([place] (5/325)) 1 tab Q4H PRN PO MODERATE PAIN LEVEL 4-6 Last administered on 06/16/18at 21:05; Admin Dose 1 TAB; Start 06/13/18 at 12:30 Morphine Sulfate (morphine) 2 mg Q2H PRN IV SEVERE PAIN LEVEL 7-10 Last administered on 06/13/18 17:01; Admin Dose 2 MG; Start 06/13/18 at 12:30 Acetaminophen/ Hydrocodone Bitart ([place] (5/325)) 2 tab Q4H PRN PO PAIN LEVEL 6-10 Last administered on 06/15/18 19:32; Admin Dose 2 TAB; Start 06/13/18 at 17:30 Ondansetron HCl (Zofran Tab) 4 mg Q6H PRN PO NAUSEA AND/OR VOMITING Last administered on 06/14/18 17:07; Admin Dose 4 MG; Start 06/14/18 at 16:30 Shannan HUERTA Jun 17, 2018 11:34
[2018-06-17] MEDS ORDERED: IOHEXOL 300MG/ML 150 ML BTL ONE ×2 (14:16)
[2018-06-17 15:23] VITALS: BP 125/73; PULSE 89; RESP 18
[2018-06-17] MEDS: HYDROCODONE/APAP (5/325) TAB PO PRN (18:43)
[2018-06-17 19:30] VITALS: BP 120/69; PULSE 105; RESP 18
[2018-06-18] MEDS: ACCUCHECK AT 2AM (Patients on SS coverage) XX SCH (02:00)
[2018-06-18 02:30] VITALS: BP 130/87; PULSE 85; RESP 18
[2018-06-18] MEDS: HYDROCODONE/APAP (5/325) TAB PO PRN (04:43)
[2018-06-18 07:48] VITALS: BP 130/80; PULSE 75; RESP 18
[2018-06-18] MEDS: INSULIN ASPART [NOVOLOG] 3 ML PEN SC SCH ×2 (07:50→13:05)
--- NOTE | 2018-06-18 13:36 | PDOCDIS ---
Discharge Instructions CONDITION [id number] Patient Condition: [id number] Stable HOME CARE INSTRUCTIONS: [id number] Diet Instructions: [id number] ACTIVITY: [id number] Activity Restrictions: [id number] Slowly Increase Activity Rest between Activity Avoid heavy lifting Avoid Heavy Housework [id number] Bathing Restrictions: [id number] Shower FOLLOW UP/APPOINTMENTS Follow-up Plan FU with primary x 1 wek Fu withas recommended Call 911 or got to the nearest hospital if symptoms get worse- patient verbalized understanding ZAYRA Mendes Dr Jun 18, 2018 13:36
--- NOTE | 2018-06-18 13:37 | PN ---
Date/Time of Note Date/Time of Note DATE: 06/18/18 TIME: 13:37 Assessment/Plan VTE Prophylaxis Risk score (from Nsg)>0 risk: 4 SCD applied (from Nsg): Yes Lines/Catheters IV Catheter Type (from Nrsg): Saline Lock Urinary Cath still in place: Yes Assessment/Plan Result Diagram: 06/17/18 0425 06/17/18 0425 Results 24hrs Laboratory Tests Test 06/17/18 17:52 06/17/18 20:44 06/18/18 08:12 06/18/18 13:04 Bedside Glucose 128 171 109 103 Subjective 24 Hr Interval Summary Free Text/Dictation 06/17/2018 Entry Exam/Review of Systems Exam Vitals Vital Signs Date Temp Pulse Resp B/P (MAP) Pulse Ox O2 O2 Flow FiO2 Time Delivery Rate 06/18/18 98.1 75 18 130/80 93 Room Air 07:48 (97) 06/14/18 2.0 20:00 Intake and Output 06/17/18 06/17/18 06/18/18 1515:00 23:00 07:00 IntakeIntake Total 600 ml 480 ml 180 ml OutputOutput Total 500 ml 400 ml 400 ml BalanceBalance 100 ml 80 ml -220 ml Results Results 24hrs Laboratory Tests Test 06/17/18 17:52 06/17/18 20:44 06/18/18 08:12 06/18/18 13:04 Bedside Glucose 128 171 109 103 Medications Medication Current Medications Diphenhydramine HCl (Benadryl) 25 mg Q4H PRN IV .PRURITUS; Start 06/08/18 at 13:30 Nalbuphine HCl (Nubain) 10 mg Q4H PRN IV .PRURITUS; Start 06/08/18 at 13:30 Trimethobenzamide HCl (Tigan) 200 mg Q6H PRN IM .NAUSEA/VOMITING; Start 06/08/18 at 13:30 Naloxone HCl (Narcan) 0.2 mg Q2M PRN IV .RESP RATE; Start 06/08/18 at 13:30 Miscellaneous Information (* Miscellaneous Pharmacy Order) DURAMORPH: 0.2 MG SPI... GIVEN NEURAXIAL XX ; Start 06/08/18 at 13:30 Naloxone HCl (Narcan) 0.2 mg Q2M PRN IV RR 8 BREATHS/MIN OR LESS; Start 06/08/18 at 16:30 Miscellaneous Information 1 ea NOTE XX ; Start 06/09/18 at 10:00 Glucose (Glutose) 15 gm Q15M PRN PO DECREASED GLUCOSE; Start 06/09/18 at 10:00 Glucose (Glutose) 22.5 gm Q15M PRN PO DECREASED GLUCOSE; Start 06/09/18 at 10:00 Dextrose (D50w Syringe) 25 ml Q15M PRN IV DECREASED GLUCOSE; Start 06/09/18 at 10:00 Dextrose (D50w Syringe) 50 ml Q15M PRN IV DECREASED GLUCOSE; Start 06/09/18 at 10:00 Glucagon (Glucagen) 1 mg Q15M PRN IM DECREASED GLUCOSE; Start 06/09/18 at 10:00 Glucose (Glutose) 15 gm Q15M PRN BUCCAL DECREASED GLUCOSE; Start 06/09/18 at 10:00 Diagnostic Test (Pha) (Accu-Chek) 1 ea 02 XX ; Start 06/10/18 at 02:00 Insulin Aspart (Novolog Insulin Pen) NOVOLOG *MODERATE* ALGORITHM WITH MEALS BEDTIME SC Last administered on 06/17/18 13:28; Admin Dose 2 UNIT; Start 06/13/18 at 08:30 Acetaminophen/ Hydrocodone Bitart ([place] (5/325)) 1 tab Q4H PRN PO MODERATE PAIN LEVEL 4-6 Last administered on 06/18/18 04:43; Admin Dose 1 TAB; Start 06/13/18 at 12:30 Morphine Sulfate (morphine) 2 mg Q2H PRN IV SEVERE PAIN LEVEL 7-10 Last administered on 06/13/18 17:01; Admin Dose 2 MG; Start 06/13/18 at 12:30 Acetaminophen/ Hydrocodone Bitart ([place] (5/325)) 2 tab Q4H PRN PO PAIN LEVEL 6-10 Last administered on 06/15/18 19:32; Admin Dose 2 TAB; Start 06/13/18 at 17:30 Ondansetron HCl (Zofran Tab) 4 mg Q6H PRN PO NAUSEA AND/OR VOMITING Last administered on 06/14/18 17:07; Admin Dose 4 MG; Start 06/14/18 at 16:30 ZAYRA AVILA Jun 18, 2018 13:37
--- NOTE | 2018-06-18 13:38 | DS ---
Date/Time of Note Date/Time of Note DATE: 06/18/18 TIME: 13:38 Discharge Summary Admission/Discharge Info Admit Date/Time Jun 08, 2018 at 10:07 Discharge Date/Time Patient Condition: Stable Home Meds No Active Prescriptions or Reported Meds Follow-up Plan FU with primary x 1 stephen Jansen withas recommended Call 911 or got to the nearest hospital if symptoms get worse- patient verbalized understanding dc instruction Rafael Shannon Primary Care Provider Not On Staff Doctor Pending Labs Laboratory Tests Test 06/17/18 17:52 06/17/18 20:44 06/18/18 08:12 06/18/18 13:04 Bedside 128 171 109 103 Glucose mg/dL (70-220) mg/dL (70-220) mg/dL (70-220) mg/dL (70-220) ZAYRA AVILA Jun 18, 2018 13:38
--- NOTE | 2018-06-18 15:14 | PN ---
DATE: 06/18/2018 This is followup for surgical department status post laparotomy, takedown of the colovesical fistula. SUBJECTIVE: No complaint. Has been tolerating diet. Bowel movement is okay. He still has a Knight catheter and plan is to keep the Knight catheter then patient will go home with Knight catheter in plac e. Dr. Huerta is going to remove it in the office and the patient sees him in for followup. Yesterday, cystogram was done and the report states that there is no leakage, there is no extravasation. OBJECTIVE: GENERAL: Today, alert, awake, oriented. VITAL SIGNS: Temperature maximum 98.5, heart rate 85, respiration 18, blood pressure 130/87, saturat ion 96% on room air. HEART: Regular. LUNGS: Clear. ABDOMEN: Soft. Incision line is clean. No cellulitis. GENITOURINARY: Knight catheter in place. LABORATORY DATA: There is no lab done today except for POC glucose which is 109. ASSESSMENT AND PLAN: The patient can be discharged home with Knight catheter. I gave him all the ins tructions and all of his questions were answered. The patient will be given prescription for pain me dication. The patient is to follow up with Dr. Huerta on 06/27/2018. Dictated By: TITA SALAZAR MD PS/NTS Conf#: [id number] DID#: [id number] CC: CHANCE HUERTA MD; BUD SWARTZ MD;*EndCC*
== END 2018-06-18 15:02 | disposition home or self-care (01) | DRG 330 ==
LOC: REC 10:07 → EDSTATUS 13:00 → MS1 18:02
PROVIDERS: ADMIT Surgery; ATTEND Surgery
PROC: 0DBG0ZZ Excision of Left Large Intestine, Open Approach (ICD-10-PCS; 2018-06-08)
PROC: 0TQB0ZZ Repair Bladder, Open Approach (ICD-10-PCS; 2018-06-08)
PROC: 0WQF0ZZ Repair Abdominal Wall, Open Approach (ICD-10-PCS; 2018-06-08)
PROC: 0DJD8ZZ Inspection of Lower Intestinal Tract, Via Natural or Artificial Opening Endoscopic (ICD-10-PCS; 2018-06-08)
PROC: 0TBB0ZZ Excision of Bladder, Open Approach (ICD-10-PCS; principal; 2018-06-08 13:00)
DX: K91.89 Other postprocedural complications and disorders of digestive system (principal); N32.1 Vesicointestinal fistula; K57.32 Diverticulitis of large intestine without perforation or abscess without bleeding; Z68.41 Body mass index [BMI] 40.0-44.9, adult; Z90.49 Acquired absence of other specified parts of digestive tract; K43.2 Incisional hernia without obstruction or gangrene; E66.01 Morbid (severe) obesity due to excess calories
CPT/HCPCS: 74430; 80048; 80053; 82962; 83036; 85025; 85610; 85730; 87086; 88307; J0295; J0690; J1100; J1170; J1815; J2175; J2250; J2270; J2274; J2405; J2710; J3010; J3480; J7030; Q9967